=== PATIENT | female | born 1980 | race Caucasian/White ===

== ENCOUNTER 2021-02-13 13:20 | Emergency (ER) | payer BC, SELFPAY ==
[2021-02-13] MEDS ORDERED: Acetaminophen 500 MG TAB ONE (14:53)
== END 2021-02-13 14:58 | disposition home or self-care (01) ==
LOC: MADERS 13:20
DX: S93.402A Sprain of unspecified ligament of left ankle, initial encounter (principal); I25.10 Atherosclerotic heart disease of native coronary artery without angina pectoris; E11.9 Type 2 diabetes mellitus without complications; E78.5 Hyperlipidemia, unspecified; Z79.4 Long term (current) use of insulin; E78.00 Pure hypercholesterolemia, unspecified; I10 Essential (primary) hypertension; Z79.899 Other long term (current) drug therapy; Z79.82 Long term (current) use of aspirin; W17.2XXA Fall into hole, initial encounter

== ENCOUNTER 2021-10-14 08:24 | Emergency (ER) | payer MEDICAID, SELFPAY ==
[2021-10-14] MEDS ORDERED: Sodium Chloride 0.9% 100 ML BAG IVPB ONE (08:25)
[2021-10-14] MEDS ORDERED: Iopamidol 370 76% 125 ML VIAL FS ONE (08:25)
[2021-10-14 09:15] LABS: #Basophils 0.2 thou/uL (0.0-0.2); #Eosinphils 0.1 thou/uL (0.0-0.7); #Lymphocytes 0.7 thou/uL (1.20-3.40); #Monocytes 0.9 thou/uL (0.11-0.59); #Neutrophils 8.9 thou/uL (1.40-6.50); %Basophils 1.9 % (0.0-1.0); %Eosinophils 0.7 % (0.0-10.0); %Lymphocytes 6.9 % (21.0-51.0); %Monocytes 8.1 % (0.0-10.0); %Neutrophils 82.5 % (42.0-75.0); Hemoglobin 10.3 g/dL (12.0-16.0); Mean Corpuscular HGB CONC 29.7 g/dL (32.0-36.0); Mean Corpuscular Hemoglobin 24.9 pg (27.0-31.0); Mean Corpuscular Volume 83.9 fL (78.0-98.0); Mean Platelet Volume 6.9 fL (7.4-10.4); Platelet Count 268 thou/uL (130-400); Red Blood Cell (RBC) Count 4.14 mill/uL (4.20-5.40); White Blood Cell (WBC) Count 10.8 thou/uL (4.8-10.8)
[2021-10-14 09:18] LABS: Platelet Morphology Comment Appears Adequate
[2021-10-14] MEDS ORDERED: Ketorolac Tromethamine 30 MG/ML VIAL ONE (09:23)
[2021-10-14 09:31] LABS: ALT (SGPT) 16 U/L (8-55); AST (SGOT) 10 U/L (5-34); Albumin 3.4 g/dL (3.5-5.0); Alkaline Phosphatase 73 U/L (40-110); Anion Gap 15 mmol/L (10-20); BUN (Urea Nitrogen) 18 mg/dL (7.0-18.7); Bilirubin, Total 0.8 mg/dL (0.2-1.2); Calc. Creatinine Clearance 0 mL/min (70-130); Calcium 8.9 mg/dL (7.8-10.44); Carbon Dioxide 20 mmol/L (22-29); Chloride 103 mmol/L (98-107); Globulin 3.9 g/dL (2.4-3.5); Glucose 238 mg/dL (70-105); Lipase 30 U/L (8-78); Potassium 3.8 mmol/L (3.5-5.1); Protein, Total 7.3 g/dL (6.0-8.3); Sodium 134 mmol/L (136-145)
[2021-10-14 11:30] LABS: SARS-CoV-2 NAA Rapid Test DETECTED (NotDetected)
[2021-10-14] MEDS ORDERED: HYDROcodone/Acetaminophen 5/325 mg Tablet ONE (11:46)
== END 2021-10-14 11:55 | disposition home or self-care (01) ==
LOC: MADERS 08:24
DX: U07.1 COVID-19 (principal); I10 Essential (primary) hypertension; I25.10 Atherosclerotic heart disease of native coronary artery without angina pectoris; E11.9 Type 2 diabetes mellitus without complications; E78.5 Hyperlipidemia, unspecified; E78.00 Pure hypercholesterolemia, unspecified
CPT/HCPCS: 0240U; 71275; 80053; 83690; 83880; 84484; 85025; 93005; 96374; J1885; J3490; Q9967

== ENCOUNTER 2021-11-22 23:15 | Emergency (ER) | payer MEDICAID ==
[~2021-11-22 23:15] MED LIST: Iopamidol 370 76% 100 ML VIAL ONE
[2021-11-23] MEDS ORDERED: Ondansetron PF 4 MG/2 ML Vial ONE ×2 (00:59→04:22)
[2021-11-23] MEDS ORDERED: Ketorolac Tromethamine 30 MG/ML VIAL ONE (00:59)
[2021-11-23] MEDS ORDERED: Sodium Chloride 0.9% 1,000 ML ONE ×2 (00:59→03:04)
[2021-11-23 02:00] LABS: ALT (SGPT) 8 U/L (8-55); AST (SGOT) 21 U/L (5-34); Albumin 3.7 g/dL (3.5-5.0); Alkaline Phosphatase 80 U/L (40-110); Anion Gap 17 mmol/L (10-20); BUN (Urea Nitrogen) 16 mg/dL (7.0-18.7); Bilirubin, Total 0.9 mg/dL (0.2-1.2); Calc. Creatinine Clearance 0 mL/min (70-130); Calcium 9.2 mg/dL (7.8-10.44); Chloride 102 mmol/L (98-107); Globulin 3.7 g/dL (2.4-3.5); Glucose 278 mg/dL (70-105); Potassium 4.1 mmol/L (3.5-5.1); Protein, Total 7.4 g/dL (6.0-8.3); Sodium 140 mmol/L (136-145)
[2021-11-23 02:06] LABS: Carbon Dioxide 25 mmol/L (22-29)
[2021-11-23 02:11] LABS: #Basophils 0.1 thou/uL (0.0-0.2); #Eosinphils 0.3 thou/uL (0.0-0.7); #Lymphocytes 2.5 thou/uL (1.20-3.40); #Monocytes 0.6 thou/uL (0.11-0.59); %Basophils 0.9 % (0.0-1.0); %Eosinophils 2.2 % (0.0-10.0); %Monocytes 4.5 % (0.0-10.0); %Neutrophils 72.4 % (42.0-75.0); Hemoglobin 12.1 g/dL (12.0-16.0); Hypochromia SLIGHT = 6-15 cells (100X) (0-5/hpf); MDiff Complete? YES; Mean Corpuscular HGB CONC 29.7 g/dL (32.0-36.0); Mean Corpuscular Hemoglobin 23.9 pg (27.0-31.0); Mean Corpuscular Volume 80.6 fL (78.0-98.0); Mean Platelet Volume 6.6 fL (7.4-10.4); Microcytosis SLIGHT = 6-15 cells (100X) (0-5/hpf); Platelet Count 380 thou/uL (130-400); Polychromasia SLIGHT = 2-3 cells (100X) (0-2/hpf); Red Blood Cell (RBC) Count 5.05 mill/uL (4.20-5.40); White Blood Cell (WBC) Count 12.4 thou/uL (4.8-10.8)
[2021-11-23 02:42] LABS: Bilirubin Small (Negative); Blood, Urine Large (Negative); Clarity Cloudy (Clear); Glucose, Urine (Dipstick) Negative (Negative); Ketone, Urine Trace mg/dL (Negative); Leukocyte Negative (Negative); Nitrite Negative (Negative); Protein, Urine (Dipstick) > or equal to 300 mg/dL (Neg-Trace); pH, Urine 5.5 (5.0-9.0)
[2021-11-23 02:43] LABS: Specific Gravity, Urine 1.026 (1.002-1.036)
[2021-11-23 03:04] LABS: Bacteria/HPF Rare-Few HPF (None Seen); RBC/HPF Greater than 50 HPF (0-3); Transitional Epithelial 0-3 HPF (None Seen)
[2021-11-23] MEDS ORDERED: traMADol HCl 50 MG TAB ONE (03:04)
[2021-11-23] MEDS ORDERED: Promethazine HCl 25 MG/ML VIAL ONE (03:04)
[2021-11-23 03:07] LABS: Amphetamine Not Detected (NotDetected); Barbiturates Screen Not Detected (NotDetected); Benzodiazepine Screen Not Detected (NotDetected); Cocaine Metabolite Screen Not Detected (NotDetected); Medtox Control Line Valid? VALID (VALID); Methadone Not Detected (NotDetected); Methamphetamine Not Detected (NotDetected); Opiate Screen Not Detected (NotDetected); Oxycodone Screen Not Detected (NotDetected); Phencyclidine (PCP) Not Detected (NotDetected); THC/Cannabinoid Screen Detected (NotDetected); Tricyclic Screen Not Detected (NotDetected)
[2021-11-23] MEDS ORDERED: Lorazepam 2 MG/ML VIAL ONE (04:22)
== END 2021-11-23 07:09 | disposition home or self-care (01) ==
LOC: MADERS 23:15
DX: S39.012A Strain of muscle, fascia and tendon of lower back, initial encounter (principal); R16.0 Hepatomegaly, not elsewhere classified; I10 Essential (primary) hypertension; R00.0 Tachycardia, unspecified; I25.10 Atherosclerotic heart disease of native coronary artery without angina pectoris; E78.5 Hyperlipidemia, unspecified; Z79.899 Other long term (current) drug therapy; Z79.82 Long term (current) use of aspirin; Z79.4 Long term (current) use of insulin; X58.XXXA Exposure to other specified factors, initial encounter
CPT/HCPCS: 74177; 80053; 80306; 81003; 81015; 84443; 84484; 85025; 93005; 96374; 96375; 96376; J1885; J2060; J2405; J2550; J7050; Q9967

== ENCOUNTER 2022-05-01 15:07 | Emergency (ER) | payer MEDICAID ==
[2022-05-01] MEDS ORDERED: Ondansetron PF 4 MG/2 ML Vial ONE (17:46)
[2022-05-01] MEDS ORDERED: Morphine 4 MG/ML VIAL ONE ×2 (17:46→18:33)
== END 2022-05-01 18:40 | disposition short-term general hospital (02) ==
LOC: MADERS 15:07
DX: M54.16 Radiculopathy, lumbar region (principal); R20.1 Hypoesthesia of skin; E11.9 Type 2 diabetes mellitus without complications; R79.82 Elevated C-reactive protein (CRP); I10 Essential (primary) hypertension; I25.10 Atherosclerotic heart disease of native coronary artery without angina pectoris; E78.5 Hyperlipidemia, unspecified; E78.00 Pure hypercholesterolemia, unspecified; Z79.4 Long term (current) use of insulin; Z79.899 Other long term (current) drug therapy
CPT/HCPCS: 36415; 86140; 96374; 96375; 96376; J2270; J2405

== ENCOUNTER 2022-06-24 15:50 | Emergency (ER) | payer MEDICAID ==
[~2022-06-24 15:50] MED LIST changes: -Iopamidol 370 76% 100 ML VIAL ONE; +Iopamidol 370 76% 125 ML VIAL FS ONE
[2022-06-24] MEDS ORDERED: Sodium Chloride 0.9% 1,000 ML ONE (16:49)
[2022-06-24 17:39] LABS: ALT (SGPT) 17 U/L (8-55); AST (SGOT) 13 U/L (5-34); Albumin 3.7 g/dL (3.5-5.0); Alkaline Phosphatase 80 U/L (40-110); Anion Gap 14 mmol/L (10-20); BUN (Urea Nitrogen) 13 mg/dL (7.0-18.7); Bilirubin, Total 0.8 mg/dL (0.2-1.2); Calc. Creatinine Clearance 0 mL/min (70-130); Calcium 8.9 mg/dL (7.8-10.44); Carbon Dioxide 21 mmol/L (22-29); Chloride 107 mmol/L (98-107); Globulin 3.7 g/dL (2.4-3.5); Glucose 241 mg/dL (70-105); Potassium 3.6 mmol/L (3.5-5.1); Protein, Total 7.4 g/dL (6.0-8.3); Sodium 138 mmol/L (136-145)
[2022-06-24 17:43] LABS: Band 3 % (5-11); Eosinophils 8 % (0-10); Hemoglobin 13.8 g/dL (12.0-16.0); Lymphocytes 9 % (21-51); MDiff Complete? YES; Mean Corpuscular HGB CONC 30.8 g/dL (32.0-36.0); Mean Corpuscular Hemoglobin 28.6 pg (27.0-31.0); Mean Platelet Volume 9.5 fL (7.4-10.4); Monocytes 4 % (0-10); Neutrophil 68 % (42-75); Platelet Count 283 thou/uL (130-400); Platelet Morphology Comment Appears Adequate; RBC Distribution Width 14.9 % (11.5-14.5); RBC Morphology Normal; Reactive Lymphocytes 8 % (0-10); Red Blood Cell (RBC) Count 4.83 mill/uL (4.20-5.40); White Blood Cell (WBC) Count 12.8 thou/uL (4.8-10.8)
[2022-06-24 17:47] LABS: Estimated GFR 83
[2022-06-24 18:01] LABS: Bilirubin Negative (Negative); Blood, Urine Large (Negative); Glucose, Urine (Dipstick) 250 mg/dL (Negative); Ketone, Urine Negative (Negative); Leukocyte Negative (Negative); Nitrite Positive (Negative); Protein, Urine (Dipstick) 100 mg/dL (Neg-Trace); Urobilinogen 0.2 mg/dL (Less than 2)
[2022-06-24 18:02] LABS: Clarity Cloudy (Clear)
[2022-06-24 18:06] LABS: Pregnancy Test - Urine (BHCG) Negative (Negative); Pregu Control Background? CLEAR/WHITE (CLR/WHITE); Pregu Control Bar Appear? YES (CONTROL BAR)
[2022-06-24 18:11] LABS: Bacteria/HPF 2+ HPF (None Seen); RBC/HPF 0-3 HPF (0-3)
[2022-06-24] MEDS ORDERED: Ketorolac Tromethamine 30 MG/ML VIAL ONE (18:11)
[2022-06-24] MEDS ORDERED: Sulfameth/Trimethoprim DS 800-160mg TAB ONE (18:56)
[2022-06-24] MEDS ORDERED: traMADol HCl 50 MG TAB ONE (19:14)
== END 2022-06-24 19:31 | disposition home or self-care (01) ==
LOC: MADERS 15:50
DX: S76.011A Strain of muscle, fascia and tendon of right hip, initial encounter (principal); N30.01 Acute cystitis with hematuria; R42 Dizziness and giddiness; E11.9 Type 2 diabetes mellitus without complications; E78.00 Pure hypercholesterolemia, unspecified; I10 Essential (primary) hypertension; Z86.73 Personal history of transient ischemic attack (TIA), and cerebral infarction without residual deficits; Z79.4 Long term (current) use of insulin; Z79.899 Other long term (current) drug therapy; Z79.84 Long term (current) use of oral hypoglycemic drugs; W19.XXXA Unspecified fall, initial encounter
CPT/HCPCS: 36416; 71275; 80053; 81003; 81015; 81025; 84484; 85025; 85379; 93005; 96361; 96374; J1885; J7050; Q9967

== ENCOUNTER 2022-07-11 10:40 | Emergency (ER) | payer MEDICAID ==
[2022-07-11 11:41] LABS: #Basophils 0.1 thou/uL (0.0-0.2); #Eosinphils 0.7 thou/uL (0.0-0.7); #Lymphocytes 1.9 thou/uL (1.20-3.40); #Monocytes 0.5 thou/uL (0.11-0.59); #Neutrophils 7.5 thou/uL (1.40-6.50); %Basophils 1.2 % (0.0-1.0); %Eosinophils 6.2 % (0.0-10.0); %Lymphocytes 17.9 % (21.0-51.0); %Monocytes 4.8 % (0.0-10.0); Hemoglobin 15.3 g/dL (12.0-16.0); Mean Corpuscular HGB CONC 31.1 g/dL (32.0-36.0); Mean Corpuscular Hemoglobin 29.7 pg (27.0-31.0); Mean Corpuscular Volume 95.6 fL (78.0-98.0); Mean Platelet Volume 8.5 fL (7.4-10.4); Platelet Count 342 thou/uL (130-400); RBC Distribution Width 15.1 % (11.5-14.5); Red Blood Cell (RBC) Count 5.16 mill/uL (4.20-5.40); White Blood Cell (WBC) Count 10.8 thou/uL (4.8-10.8)
[2022-07-11 11:46] LABS: Bilirubin Negative (Negative); Blood, Urine Negative (Negative); Clarity Clear (Clear); Glucose, Urine (Dipstick) 100 mg/dL (Negative); Ketone, Urine Negative (Negative); Leukocyte Negative (Negative); Nitrite Negative (Negative); Protein, Urine (Dipstick) 30 mg/dL (Neg-Trace); Urobilinogen 0.2 mg/dL (Less than 2); pH, Urine 5.5 (5.0-9.0)
[2022-07-11 11:48] LABS: Pregnancy Test - Urine (BHCG) Negative (Negative); Pregu Control Background? CLEAR/WHITE (CLR/WHITE); Pregu Control Bar Appear? YES (CONTROL BAR)
[2022-07-11 11:53] LABS: Bacteria/HPF Rare-Few HPF (None Seen); Mucous/LPF Rare LPF (<2+); RBC/HPF 0-3 HPF (0-3); Squamous Epithelial 0-3 HPF (0-3); WBC/HPF 0-3 HPF (0-3)
[2022-07-11 11:56] LABS: ALT (SGPT) 16 U/L (8-55); AST (SGOT) 16 U/L (5-34); Albumin 3.9 g/dL (3.5-5.0); Alkaline Phosphatase 92 U/L (40-110); Anion Gap 17 mmol/L (10-20); BUN (Urea Nitrogen) 10 mg/dL (7.0-18.7); Bilirubin, Total 0.7 mg/dL (0.2-1.2); Calc. Creatinine Clearance 0 mL/min (70-130); Calcium 9.1 mg/dL (7.8-10.44); Carbon Dioxide 21 mmol/L (22-29); Chloride 101 mmol/L (98-107); Estimated GFR 96; Globulin 4.1 g/dL (2.4-3.5); Glucose 298 mg/dL (70-105); Potassium 4.2 mmol/L (3.5-5.1); Sodium 135 mmol/L (136-145)
[2022-07-11] MEDS ORDERED: Furosemide 40 MG/4 ML VIAL ONE (12:34)
[2022-07-11] MEDS ORDERED: Ketorolac Tromethamine 30 MG/ML VIAL ONE (13:25)
== END 2022-07-11 16:09 | disposition short-term general hospital (02) ==
LOC: MADERS 10:40
DX: I11.0 Hypertensive heart disease with heart failure (principal); I50.9 Heart failure, unspecified; J90 Pleural effusion, not elsewhere classified; E11.9 Type 2 diabetes mellitus without complications; E78.00 Pure hypercholesterolemia, unspecified; E66.9 Obesity, unspecified; Z86.73 Personal history of transient ischemic attack (TIA), and cerebral infarction without residual deficits; Z79.4 Long term (current) use of insulin; Z79.899 Other long term (current) drug therapy
CPT/HCPCS: 71045; 80053; 81003; 81015; 81025; 83880; 84484; 85025; 87086; 93005; 96374; 96375; J1885; J1940

== ENCOUNTER 2022-08-29 08:37 | Emergency (ER) | payer MEDICAID ==
[~2022-08-29 08:37] MED LIST changes: -Iopamidol 370 76% 125 ML VIAL FS ONE; +Sodium Chloride 0.9% 100 ML BAG ONE
[2022-08-29] MEDS ORDERED: Iopamidol 370 76% 125 ML VIAL FS ONE (08:52)
[2022-08-29] MEDS ORDERED: Ondansetron PF 4 MG/2 ML Vial ONE (09:17)
[2022-08-29] MEDS ORDERED: Metoprolol Tartrate 5 MG/5 ML VIAL ONE (09:17)
[2022-08-29] MEDS ORDERED: Aspirin 325 MG TAB ONE (09:17)
[2022-08-29 09:34] LABS: INR-International Normal Ratio 1.3; Prothrombin Time 16.8 sec (12.0-14.7)
[2022-08-29 09:35] LABS: PTT 25.7 sec (22.9-36.1)
[2022-08-29 09:38] LABS: Band 3 % (5-11); Hemoglobin 15.2 g/dL (12.0-16.0); Lymphocytes 4 % (21-51); MDiff Complete? YES; Mean Corpuscular HGB CONC 30.2 g/dL (32.0-36.0); Mean Corpuscular Volume 96.2 fl (78.0-98.0); Mean Platelet Volume 7.6 fL (7.4-10.4); Monocytes 2 % (0-10); Myelocyte 1 % (0-0); Neutrophil 90 % (42-75); Platelet Count 327 10x3/uL (130-400); Platelet Morphology Comment Appears Adequate; RBC Distribution Width 15.7 % (11.5-14.5); RBC Morphology Normal; Red Blood Cell (RBC) Count 5.23 mill/uL (4.20-5.40); White Blood Cell (WBC) Count 21.3 10x3/uL (4.8-10.8)
[2022-08-29] MEDS ORDERED: Furosemide 40 MG/4 ML VIAL ONE (09:39)
[2022-08-29 09:42] LABS: ALT (SGPT) 18 U/L (8-55); AST (SGOT) 14 U/L (5-34); Albumin 4.1 g/dL (3.5-5.0); Alkaline Phosphatase 107 U/L (40-110); Anion Gap 28 mmol/L (10-20); BUN (Urea Nitrogen) 15 mg/dL (7.0-18.7); Bilirubin, Total 1.8 mg/dL (0.2-1.2); CK (CPK) 48 U/L (29-168); Calc. Creatinine Clearance 0 mL/min (70-130); Calcium 9.4 mg/dL (7.8-10.44); Carbon Dioxide 14 mmol/L (22-29); Chloride 99 mmol/L (98-107); Estimated GFR 62; Globulin 4.8 g/dL (2.4-3.5); Lipase 26 U/L (8-78); Magnesium 1.7 mg/dL (1.6-2.6); Potassium 4.1 mmol/L (3.5-5.1); Protein, Total 8.9 g/dL (6.0-8.3); Sodium 137 mmol/L (136-145)
[2022-08-29 10:06] LABS: Glucose 535 mg/dL (70-105)
[2022-08-29] MEDS ORDERED: INSULIN REGULAR IN 0.9 % NACL 100 UNIT/100 ML BAG ONE (10:47)
[2022-08-29] MEDS ORDERED: Potassium Chloride 20 MEQ TAB ONE (10:47)
[2022-08-29 11:06] LABS: Bilirubin Negative (Negative); Blood, Urine Moderate (Negative); Glucose, Urine (Dipstick) >=1000 mg/dL (Negative); Ketone, Urine 40 mg/dL (Negative); Leukocyte Negative (Negative); Nitrite Negative (Negative); Protein, Urine (Dipstick) > or equal to 300 mg/dL (Neg-Trace); Urobilinogen 0.2 mg/dL (Less than 2)
[2022-08-29 11:11] LABS: Bacteria/HPF 1+ HPF (None Seen); Clarity Hazy (Clear); WBC/HPF 0-3 HPF (0-3)
[2022-08-29 11:11] LABS: Pregnancy Test - Urine (BHCG) Negative (Negative); Pregu Control Background? CLEAR/WHITE (CLR/WHITE); Pregu Control Bar Appear? YES (CONTROL BAR)
[2022-08-29 11:22] LABS: Base Excess-Venous -10.1 mmol/L (-2.0 to 3.0); Bicarbonate (HCO3v) 16.1 mmol/L (22.0-28.0); CO2 Tension (PvCO2) 36.4 mmHg (42.0-51.0); Calcium, Ionized 0.99 mmol/L (1.15-1.33); Chloride 104 mmol/L (98-107); Hemoglobin - Calc 17.3 g/dL (12.0-16.0); Potassium 5.9 mmol/L (3.5-5.1); Sodium 135 mmol/L (138-145); T. Carbon Dioxide 17.3 mmol/L (22.0-28.0); vO2 Saturation-calc 82.9 % (60.0-85.0)
[2022-08-29] MEDS ORDERED: Sodium Chloride 0.9% 100 ML ONE (12:15)
[2022-08-29 12:55] LABS: SARS-CoV-2 NAA Rapid Test Not Detected (NotDetected)
== END 2022-08-29 12:47 | disposition short-term general hospital (02) ==
LOC: MADERS 08:37
DX: E11.10 Type 2 diabetes mellitus with ketoacidosis without coma (principal); J18.0 Bronchopneumonia, unspecified organism; I11.0 Hypertensive heart disease with heart failure; I50.9 Heart failure, unspecified; R55 Syncope and collapse; E78.00 Pure hypercholesterolemia, unspecified; Z79.4 Long term (current) use of insulin; Z87.891 Personal history of nicotine dependence; Z20.822 Contact with and (suspected) exposure to COVID-19; Z79.899 Other long term (current) drug therapy
CPT/HCPCS: 36415; 36416; 70450; 71045; 71275; 74177; 80053; 81003; 81015; 81025; 82010; 82330; 82550; 82553; 82803; 83605; 83690; 83735; 83880; 84484; 85025; 85379; 85610; 85730; 87040; 93005; 96365; 96367; 96375; J1815; J1940; J2405; J3490; J7620; Q9967; U0002

== ENCOUNTER 2022-09-15 18:18 | Emergency (ER) | payer MEDICAID ==
[~2022-09-15 18:18] MED LIST changes: +Iopamidol 370 76% 125 ML VIAL FS ONE; -Sodium Chloride 0.9% 100 ML BAG ONE
[2022-09-15] MEDS ORDERED: Sodium Chloride 0.9% 500 ML ONE ×2 (18:39→19:52)
[2022-09-15] MEDS ORDERED: Orphenadrine Citrate 60 MG/2 ML VIAL ONE (18:39)
[2022-09-15 19:08] LABS: #Basophils 0.1 thou/uL (0.0-0.2); #Eosinphils 0.3 thou/uL (0.0-0.7); #Lymphocytes 2.6 thou/uL (1.20-3.40); #Monocytes 0.5 thou/uL (0.11-0.59); %Basophils 1.4 % (0.0-1.0); %Eosinophils 3.2 % (0.0-10.0); %Lymphocytes 26.9 % (21.0-51.0); %Monocytes 5.6 % (0.0-10.0); %Neutrophils 62.9 % (42.0-75.0); Hemoglobin 12.6 g/dL (12.0-16.0); Mean Corpuscular Hemoglobin 27.9 pg (27.0-31.0); Mean Platelet Volume 8.2 fL (7.4-10.4); Platelet Count 298 10x3/uL (130-400); RBC Distribution Width 16.3 % (11.5-14.5); Red Blood Cell (RBC) Count 4.53 mill/uL (4.20-5.40); White Blood Cell (WBC) Count 9.5 10x3/uL (4.8-10.8)
[2022-09-15 19:11] LABS: BHCG - Serum Negative (NEGATIVE); Pregs Control Background? CLEAR/WHITE (CLR/WHITE); Pregs Control Bar Appear? YES (CONTROL BAR)
[2022-09-15 19:22] LABS: ALT (SGPT) 13 U/L (8-55); AST (SGOT) 12 U/L (5-34); Albumin 3.3 g/dL (3.5-5.0); Alkaline Phosphatase 95 U/L (40-110); Anion Gap 17 mmol/L (10-20); BUN (Urea Nitrogen) 17 mg/dL (7.0-18.7); Bilirubin, Total 0.8 mg/dL (0.2-1.2); Calc. Creatinine Clearance 0 mL/min (70-130); Calcium 8.7 mg/dL (7.8-10.44); Carbon Dioxide 17 mmol/L (22-29); Chloride 109 mmol/L (98-107); Estimated GFR 82; Globulin 3.5 g/dL (2.4-3.5); Glucose 236 mg/dL (70-105); Magnesium 1.7 mg/dL (1.6-2.6); Potassium 3.6 mmol/L (3.5-5.1); Protein, Total 6.8 g/dL (6.0-8.3); Sodium 139 mmol/L (136-145)
[2022-09-15] MEDS ORDERED: Vancomycin 1 GM VIAL ONE (19:54)
[2022-09-15] MEDS ORDERED: Sodium Chloride 0.9% 250 ML 250 ML ONE (19:54)
[2022-09-15 21:29] LABS: Bilirubin Small (Negative); Blood, Urine Small (Negative); Glucose, Urine (Dipstick) 500 mg/dL (Negative); Ketone, Urine Negative (Negative); Leukocyte Negative (Negative); Nitrite Negative (Negative); Protein, Urine (Dipstick) > or equal to 300 mg/dL (Neg-Trace); Urobilinogen 0.2 mg/dL (Less than 2); pH, Urine 5.5 (5.0-9.0)
[2022-09-15 21:30] LABS: Clarity Hazy (Clear)
[2022-09-15 21:32] LABS: Specific Gravity, Urine 1.038 (1.002-1.036)
[2022-09-15 21:33] LABS: Acetaminophen Less than 10.0 mcg/mL (10.0-30.0); Alcohol Less than 10 mg/dL (Less than 10); Salicylate Less than 8.0 mg/dL (15.0-30.0)
[2022-09-15 21:36] LABS: RBC/HPF 0-3 HPF (0-3); Transitional Epithelial 0-3 HPF (None Seen)
[2022-09-15 21:37] LABS: Bacteria/HPF Rare-Few HPF (None Seen); Mucous/LPF 1+ LPF (<2+)
[2022-09-15 21:38] LABS: Amphetamine Not Detected (NotDetected); Barbiturates Screen Not Detected (NotDetected); Benzodiazepine Screen Not Detected (NotDetected); Cocaine Metabolite Screen Not Detected (NotDetected); Medtox Control Line Valid? VALID (VALID); Methadone Not Detected (NotDetected); Methamphetamine Not Detected (NotDetected); Opiate Screen Not Detected (NotDetected); Oxycodone Screen Not Detected (NotDetected); Phencyclidine (PCP) Not Detected (NotDetected); THC/Cannabinoid Screen Detected (NotDetected); Tricyclic Screen Not Detected (NotDetected)
[2022-09-15] MEDS ORDERED: Dexamethasone 10 MG/ML VIAL ONE (22:21)
[2022-09-15] MEDS ORDERED: HYDROcodone/Acetaminophen 5/325 mg Tablet ONE (22:22)
[2022-09-16] MEDS ORDERED: Carvedilol 6.25 MG TAB ONE (09:18)
[2022-09-16] MEDS ORDERED: Spironolactone 25 MG TAB PO SCH ×2 (09:45→10:15)
[2022-09-16] MEDS ORDERED: Vancomycin 1 GM VIAL ONE (09:59)
[2022-09-16] MEDS ORDERED: Sodium Chloride 0.9% 500 ML ONE (10:00)
== END 2022-09-16 12:18 | disposition home or self-care (01) ==
LOC: MADERS 18:18
DX: M51.36 Other intervertebral disc degeneration, lumbar region (principal); L03.90 Cellulitis, unspecified; R00.0 Tachycardia, unspecified; E78.00 Pure hypercholesterolemia, unspecified; I11.0 Hypertensive heart disease with heart failure; I50.9 Heart failure, unspecified; E11.9 Type 2 diabetes mellitus without complications; Z79.4 Long term (current) use of insulin; Z79.82 Long term (current) use of aspirin; Z79.899 Other long term (current) drug therapy; Z87.891 Personal history of nicotine dependence
CPT/HCPCS: 36416; 71045; 71275; 72131; 80053; 80306; 80307; 81003; 81015; 83605; 83735; 83880; 84484; 84703; 85025; 87040; 93005; 96365; 96366; 96372; J1100; J2360; J3370; J7030; J7050; Q9967

== ENCOUNTER 2022-09-19 15:49 | Emergency (ER) | payer MEDICAID ==
[2022-09-19 16:37] LABS: #Basophils 0.1 thou/uL (0.0-0.2); #Eosinphils 0.1 thou/uL (0.0-0.7); #Lymphocytes 1.6 thou/uL (1.20-3.40); #Monocytes 0.6 thou/uL (0.11-0.59); #Neutrophils 4.4 thou/uL (1.40-6.50); %Basophils 1.5 % (0.0-1.0); %Eosinophils 1.8 % (0.0-10.0); %Lymphocytes 23.8 % (21.0-51.0); %Monocytes 8.4 % (0.0-10.0); %Neutrophils 64.4 % (42.0-75.0); Hemoglobin 12.1 g/dL (12.0-16.0); Mean Corpuscular Hemoglobin 27.7 pg (27.0-31.0); Mean Corpuscular Volume 89.3 fl (78.0-98.0); Platelet Count 322 10x3/uL (130-400); RBC Distribution Width 16.5 % (11.5-14.5); Red Blood Cell (RBC) Count 4.36 mill/uL (4.20-5.40); White Blood Cell (WBC) Count 6.9 10x3/uL (4.8-10.8)
[2022-09-19] MEDS ORDERED: Ondansetron PF 4 MG/2 ML Vial ONE (17:08)
[2022-09-19] MEDS ORDERED: Orphenadrine Citrate 60 MG/2 ML VIAL ONE (17:08)
[2022-09-19] MEDS ORDERED: Sodium Chloride 0.9% 1,000 ML ONE (17:08)
[2022-09-19] MEDS ORDERED: Ketorolac Tromethamine 30 MG/ML VIAL ONE (17:08)
[2022-09-19 17:10] LABS: ALT (SGPT) 11 U/L (8-55); AST (SGOT) 11 U/L (5-34); Albumin 3.4 g/dL (3.5-5.0); Alkaline Phosphatase 86 U/L (40-110); Anion Gap 14 mmol/L (10-20); BUN (Urea Nitrogen) 10 mg/dL (7.0-18.7); Bilirubin, Total 0.9 mg/dL (0.2-1.2); Calc. Creatinine Clearance 0 mL/min (70-130); Calcium 8.6 mg/dL (7.8-10.44); Carbon Dioxide 22 mmol/L (22-29); Chloride 104 mmol/L (98-107); Estimated GFR 92; Globulin 3.3 g/dL (2.4-3.5); Glucose 350 mg/dL (70-105); Potassium 3.9 mmol/L (3.5-5.1); Protein, Total 6.7 g/dL (6.0-8.3); Sodium 136 mmol/L (136-145)
[2022-09-19 18:00] LABS: Magnesium 1.7 mg/dL (1.6-2.6)
[2022-09-19] MEDS ORDERED: Furosemide 40 MG/4 ML VIAL ONE (18:01)
[2022-09-19] MEDS ORDERED: Vancomycin 1 GM VIAL ONE (18:26)
[2022-09-19] MEDS ORDERED: Cefepime 2 GM VIAL ONE (18:26)
[2022-09-19] MEDS ORDERED: Sodium Chloride 0.9% 100 ML ONE (18:26)
[2022-09-19] MEDS ORDERED: Sodium Chloride 0.9% 250 ML 250 ML ONE (18:26)
[2022-09-19 20:42] LABS: Lactic Acid 2.8 mmol/L (0.5-2.2)
[2022-09-19 20:51] LABS: Bilirubin Negative (Negative); Blood, Urine Small (Negative); Glucose, Urine (Dipstick) 500 mg/dL (Negative); Ketone, Urine Negative (Negative); Leukocyte Negative (Negative); Nitrite Negative (Negative); Protein, Urine (Dipstick) 100 mg/dL (Neg-Trace); Urobilinogen 0.2 mg/dL (Less than 2); pH, Urine 5.5 (5.0-9.0)
[2022-09-19 20:56] LABS: Clarity Hazy (Clear); RBC/HPF 0-3 HPF (0-3); Specific Gravity, Urine 1.024 (1.002-1.036); Yeast-Budding 2+ HPF (None Seen)
[2022-09-19] MEDS ORDERED: HYDROcodone/Acetaminophen 5/325 mg Tablet ONE (22:45)
== END 2022-09-19 23:42 | disposition short-term general hospital (02) ==
LOC: MADERS 15:49
DX: A41.9 Sepsis, unspecified organism (principal); E11.9 Type 2 diabetes mellitus without complications; I11.0 Hypertensive heart disease with heart failure; I50.9 Heart failure, unspecified; E78.5 Hyperlipidemia, unspecified; E78.00 Pure hypercholesterolemia, unspecified; Z79.4 Long term (current) use of insulin; Z87.891 Personal history of nicotine dependence; Z79.899 Other long term (current) drug therapy
CPT/HCPCS: 80053; 81003; 81015; 83605; 83735; 83880; 84484; 85025; 87040; 96365; 96366; 96367; 96375; J0692; J1885; J1940; J2360; J2405; J3370; J3490; J7050

== ENCOUNTER 2022-10-01 15:44 | Emergency (ER) | payer MEDICAID ==
[2022-10-01 16:09] LABS: #Basophils 0.1 thou/uL (0.0-0.2); #Lymphocytes 1.7 thou/uL (1.20-3.40); #Monocytes 1.3 thou/uL (0.11-0.59); #Neutrophils 7.1 thou/uL (1.40-6.50); %Basophils 1.5 % (0.0-1.0); %Eosinophils 0.3 % (0.0-10.0); %Lymphocytes 16.3 % (21.0-51.0); %Monocytes 12.8 % (0.0-10.0); %Neutrophils 69.1 % (42.0-75.0); Mean Corpuscular HGB CONC 30.2 g/dL (32.0-36.0); Mean Corpuscular Hemoglobin 26.1 pg (27.0-31.0); Mean Corpuscular Volume 86.5 fl (78.0-98.0); Mean Platelet Volume 8.7 fL (7.4-10.4); Platelet Count 250 10x3/uL (130-400); RBC Distribution Width 17.3 % (11.5-14.5); Red Blood Cell (RBC) Count 4.61 mill/uL (4.20-5.40); White Blood Cell (WBC) Count 10.3 10x3/uL (4.8-10.8)
[2022-10-01] MEDS ORDERED: Furosemide 40 MG/4 ML VIAL ONE (16:10)
[2022-10-01 16:21] LABS: ALT (SGPT) 10 U/L (8-55); AST (SGOT) 17 U/L (5-34); Albumin 3.5 g/dL (3.5-5.0); Alkaline Phosphatase 87 U/L (40-110); Anion Gap 20 mmol/L (10-20); BUN (Urea Nitrogen) 8 mg/dL (7.0-18.7); Bilirubin, Total 1.3 mg/dL (0.2-1.2); CK (CPK) 166 U/L (29-168); Calc. Creatinine Clearance 0 mL/min (70-130); Calcium 8.2 mg/dL (7.8-10.44); Carbon Dioxide 20 mmol/L (22-29); Chloride 103 mmol/L (98-107); Estimated GFR 84; Globulin 3.5 g/dL (2.4-3.5); Glucose 271 mg/dL (70-105); Potassium 2.8 mmol/L (3.5-5.1); Sodium 140 mmol/L (136-145)
[2022-10-01] MEDS ORDERED: Potassium Chloride 10 MEQ TAB ONE (16:41)
[2022-10-01] MEDS ORDERED: Potassium Chloride 20 MEQ TAB ONE (16:41)
== END 2022-10-01 19:32 | disposition short-term general hospital (02) ==
LOC: MADERS 15:44
DX: I50.9 Heart failure, unspecified (principal); E87.6 Hypokalemia; R09.02 Hypoxemia; E11.9 Type 2 diabetes mellitus without complications; E78.5 Hyperlipidemia, unspecified; Z87.891 Personal history of nicotine dependence; Z79.4 Long term (current) use of insulin; Z79.899 Other long term (current) drug therapy; Z79.82 Long term (current) use of aspirin
CPT/HCPCS: 71045; 80053; 82550; 83880; 84484; 85025; 93005; 94660; 96374; J1940

== ENCOUNTER 2022-10-24 15:23 | Emergency (ER) | payer MEDICAID ==
[2022-10-24 16:44] LABS: INR-International Normal Ratio 1.4; Prothrombin Time 17.6 sec (12.0-14.7)
[2022-10-24 16:45] LABS: PTT 30.2 sec (22.9-36.1)
[2022-10-24 16:53] LABS: ALT (SGPT) 20 U/L (8-55); AST (SGOT) 12 U/L (5-34); Albumin 2.8 g/dL (3.5-5.0); Alkaline Phosphatase 102 U/L (40-110); Anion Gap 18 mmol/L (10-20); BUN (Urea Nitrogen) 14 mg/dL (7.0-18.7); Bilirubin, Total 2.5 mg/dL (0.2-1.2); Calc. Creatinine Clearance 0 mL/min (70-130); Calcium 8.6 mg/dL (7.8-10.44); Carbon Dioxide 22 mmol/L (22-29); Chloride 96 mmol/L (98-107); Estimated GFR 85; Globulin 3.9 g/dL (2.4-3.5); Glucose 280 mg/dL (70-105); Magnesium 1.7 mg/dL (1.6-2.6); Potassium 3.7 mmol/L (3.5-5.1); Protein, Total 6.7 g/dL (6.0-8.3); Sodium 132 mmol/L (136-145)
[2022-10-24 16:54] LABS: #Basophils 0.1 thou/uL (0.0-0.2); #Lymphocytes 1.3 thou/uL (1.20-3.40); #Monocytes 0.7 thou/uL (0.11-0.59); #Neutrophils 7.4 thou/uL (1.40-6.50); %Eosinophils 0.5 % (0.0-10.0); %Lymphocytes 13.8 % (21.0-51.0); %Monocytes 7.7 % (0.0-10.0); %Neutrophils 77.1 % (42.0-75.0); Anisocytosis SLIGHT = 6-15 cells (100X) (0-5/hpf); Hemoglobin 11.2 g/dL (12.0-16.0); Hypochromia SLIGHT = 6-15 cells (100X) (0-5/hpf); MDiff Complete? YES; Mean Corpuscular Hemoglobin 25.6 pg (27.0-31.0); Mean Corpuscular Volume 82.6 fl (78.0-98.0); Mean Platelet Volume 8.2 fL (7.4-10.4); Platelet Count 259 10x3/uL (130-400); Platelet Morphology Comment Appears Adequate; RBC Distribution Width 19.1 % (11.5-14.5); Red Blood Cell (RBC) Count 4.36 mill/uL (4.20-5.40); White Blood Cell (WBC) Count 9.6 10x3/uL (4.8-10.8)
[2022-10-24] MEDS ORDERED: Furosemide 40 MG/4 ML VIAL ONE (17:12)
[2022-10-24] MEDS ORDERED: Metoprolol Tartrate 5 MG/5 ML VIAL ONE (17:12)
[2022-10-24 18:03] LABS: Bilirubin Large (Negative); Blood, Urine Trace (Negative); Glucose, Urine (Dipstick) 100 mg/dL (Negative); Ketone, Urine Trace mg/dL (Negative); Leukocyte Negative (Negative); Nitrite Negative (Negative); Protein, Urine (Dipstick) > or equal to 300 mg/dL (Neg-Trace); pH, Urine 5.5 (5.0-9.0)
[2022-10-24 18:10] LABS: Bacteria/HPF 1+ HPF (None Seen); Clarity Hazy (Clear); RBC/HPF 0-3 HPF (0-3); Squamous Epithelial 0-3 HPF (0-3); WBC/HPF 0-3 HPF (0-3)
[2022-10-24 18:36] LABS: SARS-CoV-2 NAA Rapid Test DETECTED (NotDetected)
[2022-10-24 19:35] LABS: Lactic Acid 3.4 mmol/L (0.5-2.2)
== END 2022-10-24 20:52 | disposition short-term general hospital (02) ==
LOC: MADERS 15:23
DX: U07.1 COVID-19 (principal); I11.0 Hypertensive heart disease with heart failure; I50.9 Heart failure, unspecified; L30.4 Erythema intertrigo; R79.89 Other specified abnormal findings of blood chemistry; E11.9 Type 2 diabetes mellitus without complications; E78.5 Hyperlipidemia, unspecified; Z87.891 Personal history of nicotine dependence; Z79.899 Other long term (current) drug therapy; Z79.82 Long term (current) use of aspirin; Z79.4 Long term (current) use of insulin
CPT/HCPCS: 36415; 51702; 71045; 80053; 81003; 81015; 82550; 83605; 83735; 83880; 84443; 84484; 85025; 85379; 85610; 85730; 87040; 87086; 87149; 93005; 94760; 96374; 96375; J1940

== ENCOUNTER 2023-01-05 19:27 | Inpatient (IN) | payer MEDICARE, MEDICAID ==
[2023-01-05] MEDS ORDERED: Non-Formulary Item 1 EACH (Acetaminophen [Tylenol] 325 MG Capsule) PO SCH (22:00)
[2023-01-05] MEDS ORDERED: Bisacodyl 5 MG TAB PO PRN (22:00)
[2023-01-05] MEDS ORDERED: Albuterol 200 PUFF (6.7GM INHALER) INH PRN (22:00)
[2023-01-05] MEDS ORDERED: Ondansetron ODT 4 MG TAB PO PRN (22:02)
[2023-01-05] MEDS ORDERED: Acetaminophen 325 MG TAB PO PRN (22:16)
[2023-01-05] MEDS ORDERED: Dextrose 50% Abboject 50 ML SYRINGE IVP PRN (23:30)
[2023-01-05] MEDS ORDERED: Dextrose 5% in Water 1,000 ML IV PRN (23:30)
[2023-01-06] MEDS: Morphine 4 MG/ML VIAL SLOW IVP PRN ×2 (00:34→12:18)
[2023-01-06] MEDS: HYDROcodone/Acetaminophen 7.5/325 mg Tablet PO PRN ×2 (08:44→20:36)
[2023-01-06] MEDS: Nystatin Cream 15 GM TUBE TOP SCH ×2 (08:45→20:42)
[2023-01-06] MEDS: Sertraline 100 MG TAB PO SCH (08:46)
[2023-01-06] MEDS: Saccharomyces boulardii 250 MG CAP PO SCH (08:46)
[2023-01-06] MEDS: Aspirin 81 mg Enteric Coated Tablet PO SCH (08:46)
[2023-01-06] MEDS: tiZANidine HCl 4 MG TAB PO SCH ×2 (08:46→20:36)
[2023-01-06] MEDS: Gabapentin 300 MG CAP PO SCH ×3 (08:46→20:35)
[2023-01-06] MEDS: Spironolactone 25 MG TAB PO SCH (08:46)
[2023-01-06] MEDS: Cefdinir 300 MG CAP PO SCH ×2 (08:46→20:36)
[2023-01-06] MEDS: Carvedilol 6.25 MG TAB PO SCH ×2 (08:46→16:38)
[2023-01-06] MEDS: Torsemide 20 MG TAB PO SCH (08:47)
[2023-01-06] MEDS ORDERED: Gabapentin 100 MG CAP PO SCH (09:00)
[2023-01-06] MEDS: HumaLOG 300 UNITS/3 ML VIAL SC PRN ×3 (12:11→20:38)
[2023-01-06] MEDS: Atorvastatin Calcium 40 MG TAB PO SCH (20:36)
[2023-01-06] MEDS: Lantus 1000 UNITS/10 ML VIAL SC SCH (20:37)
[2023-01-07] MEDS: Morphine 4 MG/ML VIAL SLOW IVP PRN ×2 (00:11→20:05)
[2023-01-07] MEDS: tiZANidine HCl 4 MG TAB PO SCH ×2 (08:18→20:34)
[2023-01-07] MEDS: Gabapentin 300 MG CAP PO SCH ×3 (08:18→20:34)
[2023-01-07] MEDS: Carvedilol 6.25 MG TAB PO SCH ×2 (08:18→17:21)
[2023-01-07] MEDS: Cefdinir 300 MG CAP PO SCH ×2 (08:18→20:34)
[2023-01-07] MEDS: Aspirin 81 mg Enteric Coated Tablet PO SCH (08:18)
[2023-01-07] MEDS: Torsemide 20 MG TAB PO SCH (08:18)
[2023-01-07] MEDS: Sertraline 100 MG TAB PO SCH (08:18)
[2023-01-07] MEDS: Saccharomyces boulardii 250 MG CAP PO SCH (08:19)
[2023-01-07] MEDS: Spironolactone 25 MG TAB PO SCH (08:19)
[2023-01-07] MEDS: Nystatin Cream 15 GM TUBE TOP SCH (08:20)
[2023-01-07] MEDS: HYDROcodone/Acetaminophen 7.5/325 mg Tablet PO PRN ×2 (08:21→15:31)
[2023-01-07] MEDS: HumaLOG 300 UNITS/3 ML VIAL SC PRN (11:51)
[2023-01-07] MEDS: Atorvastatin Calcium 40 MG TAB PO SCH (20:34)
[2023-01-07] MEDS: Lantus 1000 UNITS/10 ML VIAL SC SCH (22:24)
[2023-01-08] MEDS: Ascorbic Acid 500 mg Chewable Tablet PO SCH (08:25)
[2023-01-08] MEDS: Carvedilol 6.25 MG TAB PO SCH ×2 (08:25→17:28)
[2023-01-08] MEDS: Sertraline 100 MG TAB PO SCH (08:25)
[2023-01-08] MEDS: Cefdinir 300 MG CAP PO SCH ×2 (08:25→20:01)
[2023-01-08] MEDS: tiZANidine HCl 4 MG TAB PO SCH ×2 (08:25→20:02)
[2023-01-08] MEDS: Saccharomyces boulardii 250 MG CAP PO SCH (08:25)
[2023-01-08] MEDS: Aspirin 81 mg Enteric Coated Tablet PO SCH (08:25)
[2023-01-08] MEDS: Gabapentin 300 MG CAP PO SCH ×3 (08:25→20:02)
[2023-01-08] MEDS: Spironolactone 25 MG TAB PO SCH (08:26)
[2023-01-08] MEDS: Zinc Sulfate 220 MG CAP PO SCH (08:26)
[2023-01-08] MEDS: Torsemide 20 MG TAB PO SCH (08:26)
[2023-01-08] MEDS: HumaLOG 300 UNITS/3 ML VIAL SC PRN ×2 (08:51→11:20)
[2023-01-08] MEDS: Morphine 4 MG/ML VIAL SLOW IVP PRN ×2 (09:41→21:45)
[2023-01-08] MEDS: HYDROcodone/Acetaminophen 7.5/325 mg Tablet PO PRN ×2 (11:22→19:58)
[2023-01-08] MEDS: Atorvastatin Calcium 40 MG TAB PO SCH (20:02)
[2023-01-08] MEDS: Lantus 1000 UNITS/10 ML VIAL SC SCH (22:00)
[2023-01-09] MEDS: Torsemide 20 MG TAB PO SCH (08:32)
[2023-01-09] MEDS: Aspirin 81 mg Enteric Coated Tablet PO SCH (08:32)
[2023-01-09] MEDS: Ascorbic Acid 500 mg Chewable Tablet PO SCH (08:32)
[2023-01-09] MEDS: Saccharomyces boulardii 250 MG CAP PO SCH (08:32)
[2023-01-09] MEDS: Cefdinir 300 MG CAP PO SCH ×2 (08:32→20:17)
[2023-01-09] MEDS: Gabapentin 300 MG CAP PO SCH ×3 (08:32→20:17)
[2023-01-09] MEDS: tiZANidine HCl 4 MG TAB PO SCH ×2 (08:32→20:17)
[2023-01-09] MEDS: Zinc Sulfate 220 MG CAP PO SCH (08:32)
[2023-01-09] MEDS: Spironolactone 25 MG TAB PO SCH (08:32)
[2023-01-09] MEDS: Carvedilol 6.25 MG TAB PO SCH ×2 (08:33→16:43)
[2023-01-09] MEDS: Sertraline 100 MG TAB PO SCH (08:33)
[2023-01-09] MEDS: HYDROcodone/Acetaminophen 7.5/325 mg Tablet PO PRN ×3 (10:59→22:53)
[2023-01-09] MEDS: HumaLOG 300 UNITS/3 ML VIAL SC PRN (12:07)
[2023-01-09] MEDS: Morphine 4 MG/ML VIAL SLOW IVP PRN (12:49)
[2023-01-09] MEDS: Atorvastatin Calcium 40 MG TAB PO SCH (20:17)
[2023-01-09] MEDS: Lantus 1000 UNITS/10 ML VIAL SC SCH (20:18)
[2023-01-10] MEDS: Morphine 4 MG/ML VIAL SLOW IVP PRN ×2 (01:33→13:55)
[2023-01-10] MEDS: Carvedilol 6.25 MG TAB PO SCH ×2 (09:24→18:14)
[2023-01-10] MEDS: Ascorbic Acid 500 mg Chewable Tablet PO SCH (09:24)
[2023-01-10] MEDS: Torsemide 20 MG TAB PO SCH (09:24)
[2023-01-10] MEDS: Sertraline 100 MG TAB PO SCH (09:25)
[2023-01-10] MEDS: tiZANidine HCl 4 MG TAB PO SCH ×2 (09:25→21:22)
[2023-01-10] MEDS: Aspirin 81 mg Enteric Coated Tablet PO SCH (09:26)
[2023-01-10] MEDS: Saccharomyces boulardii 250 MG CAP PO SCH (09:26)
[2023-01-10] MEDS: Spironolactone 25 MG TAB PO SCH (09:26)
[2023-01-10] MEDS: Zinc Sulfate 220 MG CAP PO SCH (09:26)
[2023-01-10] MEDS: Gabapentin 300 MG CAP PO SCH ×3 (09:26→21:21)
[2023-01-10] MEDS: Cefdinir 300 MG CAP PO SCH ×2 (09:26→21:22)
[2023-01-10] MEDS: HumaLOG 300 UNITS/3 ML VIAL SC PRN ×2 (09:37→12:22)
[2023-01-10] MEDS: HYDROcodone/Acetaminophen 7.5/325 mg Tablet PO PRN ×3 (10:35→22:40)
[2023-01-10] MEDS: Lantus 1000 UNITS/10 ML VIAL SC SCH (21:22)
[2023-01-10] MEDS: Atorvastatin Calcium 40 MG TAB PO SCH (21:22)
[2023-01-11] MEDS: Aspirin 81 mg Enteric Coated Tablet PO SCH (08:52)
[2023-01-11] MEDS: Spironolactone 25 MG TAB PO SCH (08:52)
[2023-01-11] MEDS: Ascorbic Acid 500 mg Chewable Tablet PO SCH (08:52)
[2023-01-11] MEDS: tiZANidine HCl 4 MG TAB PO SCH ×2 (08:52→20:42)
[2023-01-11] MEDS: Cefdinir 300 MG CAP PO SCH ×2 (08:52→20:42)
[2023-01-11] MEDS: Torsemide 20 MG TAB PO SCH (08:52)
[2023-01-11] MEDS: Gabapentin 300 MG CAP PO SCH ×3 (08:52→20:43)
[2023-01-11] MEDS: Zinc Sulfate 220 MG CAP PO SCH (08:52)
[2023-01-11] MEDS: Saccharomyces boulardii 250 MG CAP PO SCH (08:52)
[2023-01-11] MEDS: Sertraline 100 MG TAB PO SCH (08:53)
[2023-01-11] MEDS: Carvedilol 6.25 MG TAB PO SCH ×2 (08:53→17:46)
[2023-01-11] MEDS: HumaLOG 300 UNITS/3 ML VIAL SC PRN ×4 (08:56→20:50)
[2023-01-11] MEDS: HYDROcodone/Acetaminophen 7.5/325 mg Tablet PO PRN ×2 (09:05→15:56)
[2023-01-11] MEDS: HYDROcodone/Acetaminophen 10/325 mg Tablet PO PRN (20:44)
[2023-01-11] MEDS: Atorvastatin Calcium 40 MG TAB PO SCH (20:44)
[2023-01-11] MEDS: Lantus 1000 UNITS/10 ML VIAL SC SCH (20:56)
[2023-01-12] MEDS: HYDROcodone/Acetaminophen 10/325 mg Tablet PO PRN ×5 (00:55→21:52)
[2023-01-12] MEDS: Cefdinir 300 MG CAP PO SCH ×2 (08:28→21:52)
[2023-01-12] MEDS: Zinc Sulfate 220 MG CAP PO SCH (08:28)
[2023-01-12] MEDS: Spironolactone 25 MG TAB PO SCH (08:28)
[2023-01-12] MEDS: Saccharomyces boulardii 250 MG CAP PO SCH (08:28)
[2023-01-12] MEDS: Carvedilol 6.25 MG TAB PO SCH ×2 (08:29→17:24)
[2023-01-12] MEDS: Ascorbic Acid 500 mg Chewable Tablet PO SCH (08:29)
[2023-01-12] MEDS: Torsemide 20 MG TAB PO SCH (08:29)
[2023-01-12] MEDS: Aspirin 81 mg Enteric Coated Tablet PO SCH (08:29)
[2023-01-12] MEDS: HumaLOG 300 UNITS/3 ML VIAL SC PRN ×4 (08:34→21:56)
[2023-01-12] MEDS: Gabapentin 300 MG CAP PO SCH ×3 (08:34→21:54)
[2023-01-12] MEDS: tiZANidine HCl 4 MG TAB PO SCH ×2 (11:00→21:52)
[2023-01-12] MEDS: Sertraline 100 MG TAB PO SCH (11:00)
[2023-01-12] MEDS: Atorvastatin Calcium 40 MG TAB PO SCH (21:52)
[2023-01-12] MEDS: Lantus 1000 UNITS/10 ML VIAL SC SCH (21:55)
[2023-01-13] MEDS: Cefdinir 300 MG CAP PO SCH ×2 (08:32→20:52)
[2023-01-13] MEDS: HYDROcodone/Acetaminophen 10/325 mg Tablet PO PRN ×4 (08:32→20:57)
[2023-01-13] MEDS: Ascorbic Acid 500 mg Chewable Tablet PO SCH (08:33)
[2023-01-13] MEDS: Spironolactone 25 MG TAB PO SCH (08:33)
[2023-01-13] MEDS: Gabapentin 300 MG CAP PO SCH ×3 (08:33→20:52)
[2023-01-13] MEDS: Saccharomyces boulardii 250 MG CAP PO SCH (08:33)
[2023-01-13] MEDS: Torsemide 20 MG TAB PO SCH (08:33)
[2023-01-13] MEDS: Carvedilol 6.25 MG TAB PO SCH ×2 (08:33→16:15)
[2023-01-13] MEDS: Aspirin 81 mg Enteric Coated Tablet PO SCH (08:33)
[2023-01-13] MEDS: Zinc Sulfate 220 MG CAP PO SCH (08:33)
[2023-01-13] MEDS: HumaLOG 300 UNITS/3 ML VIAL SC PRN ×2 (08:37→12:23)
[2023-01-13] MEDS: tiZANidine HCl 4 MG TAB PO SCH ×2 (10:41→20:54)
[2023-01-13] MEDS: Sertraline 100 MG TAB PO SCH (10:41)
[2023-01-13] MEDS: Atorvastatin Calcium 40 MG TAB PO SCH (20:54)
[2023-01-13] MEDS: Lantus 1000 UNITS/10 ML VIAL SC SCH (20:58)
[2023-01-14] MEDS: Saccharomyces boulardii 250 MG CAP PO SCH (08:01)
[2023-01-14] MEDS: Zinc Sulfate 220 MG CAP PO SCH (08:01)
[2023-01-14] MEDS: Carvedilol 6.25 MG TAB PO SCH ×2 (08:01→17:19)
[2023-01-14] MEDS: Torsemide 20 MG TAB PO SCH (08:01)
[2023-01-14] MEDS: Spironolactone 25 MG TAB PO SCH (08:01)
[2023-01-14] MEDS: Cefdinir 300 MG CAP PO SCH ×2 (08:01→21:53)
[2023-01-14] MEDS: Aspirin 81 mg Enteric Coated Tablet PO SCH (08:01)
[2023-01-14] MEDS: Gabapentin 300 MG CAP PO SCH ×3 (08:01→21:52)
[2023-01-14] MEDS: Ascorbic Acid 500 mg Chewable Tablet PO SCH (08:02)
[2023-01-14] MEDS: HumaLOG 300 UNITS/3 ML VIAL SC PRN ×3 (08:03→17:19)
[2023-01-14] MEDS: HYDROcodone/Acetaminophen 10/325 mg Tablet PO PRN ×3 (08:09→17:18)
[2023-01-14] MEDS: Sertraline 100 MG TAB PO SCH (10:08)
[2023-01-14] MEDS: tiZANidine HCl 4 MG TAB PO SCH ×2 (10:08→21:53)
[2023-01-14] MEDS ORDERED: Loratadine 10 MG TAB PO PRN (18:27)
[2023-01-14] MEDS: Atorvastatin Calcium 40 MG TAB PO SCH (21:53)
[2023-01-14] MEDS: Acetaminophen/Codeine 30-300mg Tablet PO PRN (21:53)
[2023-01-14] MEDS: Lantus 1000 UNITS/10 ML VIAL SC SCH (21:54)
[2023-01-14] MEDS: Mupirocin 2% Ointment 22 GM Tube TOP SCH (22:03)
[2023-01-15] MEDS: Acetaminophen/Codeine 30-300mg Tablet PO PRN ×3 (04:08→19:28)
[2023-01-15] MEDS: Ascorbic Acid 500 mg Chewable Tablet PO SCH (08:37)
[2023-01-15] MEDS: Carvedilol 6.25 MG TAB PO SCH ×2 (08:37→16:53)
[2023-01-15] MEDS: Aspirin 81 mg Enteric Coated Tablet PO SCH (08:38)
[2023-01-15] MEDS: Sertraline 100 MG TAB PO SCH (08:38)
[2023-01-15] MEDS: Spironolactone 25 MG TAB PO SCH (08:38)
[2023-01-15] MEDS: Torsemide 20 MG TAB PO SCH (08:38)
[2023-01-15] MEDS: Gabapentin 300 MG CAP PO SCH ×3 (08:38→20:00)
[2023-01-15] MEDS: tiZANidine HCl 4 MG TAB PO SCH ×2 (08:38→20:00)
[2023-01-15] MEDS: Saccharomyces boulardii 250 MG CAP PO SCH (08:39)
[2023-01-15] MEDS: Cefdinir 300 MG CAP PO SCH ×2 (08:39→20:01)
[2023-01-15] MEDS: Zinc Sulfate 220 MG CAP PO SCH (08:39)
[2023-01-15] MEDS: HumaLOG 300 UNITS/3 ML VIAL SC PRN ×3 (08:40→16:53)
[2023-01-15] MEDS: Mupirocin 2% Ointment 22 GM Tube TOP SCH ×3 (08:49→20:59)
[2023-01-15] MEDS: Atorvastatin Calcium 40 MG TAB PO SCH (20:01)
[2023-01-15] MEDS: Lantus 1000 UNITS/10 ML VIAL SC SCH (20:59)
[2023-01-16] MEDS: Aspirin 81 mg Enteric Coated Tablet PO SCH (08:16)
[2023-01-16] MEDS: Spironolactone 25 MG TAB PO SCH (08:16)
[2023-01-16] MEDS: Carvedilol 6.25 MG TAB PO SCH ×2 (08:16→17:22)
[2023-01-16] MEDS: Torsemide 20 MG TAB PO SCH (08:16)
[2023-01-16] MEDS: Cefdinir 300 MG CAP PO SCH (08:16)
[2023-01-16] MEDS: Acetaminophen/Codeine 30-300mg Tablet PO PRN ×3 (08:16→20:34)
[2023-01-16] MEDS: tiZANidine HCl 4 MG TAB PO SCH ×2 (08:16→20:08)
[2023-01-16] MEDS: Gabapentin 300 MG CAP PO SCH ×3 (08:18→20:08)
[2023-01-16] MEDS: Zinc Sulfate 220 MG CAP PO SCH (08:19)
[2023-01-16] MEDS: Saccharomyces boulardii 250 MG CAP PO SCH (08:19)
[2023-01-16] MEDS: Sertraline 100 MG TAB PO SCH (08:19)
[2023-01-16] MEDS: Ascorbic Acid 500 mg Chewable Tablet PO SCH (08:19)
[2023-01-16] MEDS: Mupirocin 2% Ointment 22 GM Tube TOP SCH ×3 (08:20→20:10)
[2023-01-16] MEDS: HumaLOG 300 UNITS/3 ML VIAL SC PRN ×3 (08:20→17:22)
[2023-01-16] MEDS ORDERED: Emollient 15 oz bottle 450 ML, Triamcinolone Acetonide 200 MG TOP PRN (11:00)
[2023-01-16] MEDS: Atorvastatin Calcium 40 MG TAB PO SCH (20:08)
[2023-01-16] MEDS: Loratadine 10 MG TAB PO SCH (20:08)
[2023-01-16] MEDS: Lantus 1000 UNITS/10 ML VIAL SC SCH (20:38)
[2023-01-16] MEDS: Emollient 15 oz bottle 450 ML, Triamcinolone Acetonide 200 MG TOP SCH (21:30)
[2023-01-17 05:54] LABS: Anion Gap 15 mmol/L (10-20); BUN (Urea Nitrogen) 26 mg/dL (7.0-18.7); Calc. Creatinine Clearance 118 mL/min (70-130); Carbon Dioxide 23 mmol/L (22-29); Chloride 107 mmol/L (98-107); Estimated GFR 80; Glucose 167 mg/dL (70-105); Potassium 3.1 mmol/L (3.5-5.1); Sodium 142 mmol/L (136-145)
[2023-01-17] MEDS: Acetaminophen/Codeine 30-300mg Tablet PO PRN ×3 (08:25→21:18)
[2023-01-17] MEDS: tiZANidine HCl 4 MG TAB PO SCH ×2 (08:26→21:18)
[2023-01-17] MEDS: Aspirin 81 mg Enteric Coated Tablet PO SCH (08:26)
[2023-01-17] MEDS: Ascorbic Acid 500 mg Chewable Tablet PO SCH (08:26)
[2023-01-17] MEDS: Carvedilol 6.25 MG TAB PO SCH ×2 (08:26→17:55)
[2023-01-17] MEDS: Torsemide 20 MG TAB PO SCH (08:26)
[2023-01-17] MEDS: Gabapentin 300 MG CAP PO SCH ×3 (08:26→21:16)
[2023-01-17] MEDS: Saccharomyces boulardii 250 MG CAP PO SCH (08:27)
[2023-01-17] MEDS: Zinc Sulfate 220 MG CAP PO SCH (08:27)
[2023-01-17] MEDS: Sertraline 100 MG TAB PO SCH (08:27)
[2023-01-17] MEDS: Spironolactone 25 MG TAB PO SCH (08:27)
[2023-01-17] MEDS: Mupirocin 2% Ointment 22 GM Tube TOP SCH ×3 (08:28→21:22)
[2023-01-17] MEDS: Emollient 15 oz bottle 450 ML, Triamcinolone Acetonide 200 MG TOP SCH ×2 (08:28→21:24)
[2023-01-17] MEDS: HumaLOG 300 UNITS/3 ML VIAL SC PRN ×2 (12:35→17:55)
[2023-01-17] MEDS ORDERED: Potassium Chloride 20 MEQ TAB PO SCH (14:00)
[2023-01-17] MEDS: Atorvastatin Calcium 40 MG TAB PO SCH (21:16)
[2023-01-17] MEDS: Lantus 1000 UNITS/10 ML VIAL SC SCH (21:17)
[2023-01-17] MEDS: Loratadine 10 MG TAB PO SCH (21:21)
[2023-01-18 08:59] LABS: Anion Gap 19 mmol/L (10-20); BUN (Urea Nitrogen) 20 mg/dL (7.0-18.7); Calc. Creatinine Clearance 145 mL/min (70-130); Calcium 9.2 mg/dL (7.8-10.44); Carbon Dioxide 18 mmol/L (22-29); Chloride 105 mmol/L (98-107); Estimated GFR 102; Glucose 164 mg/dL (70-105); Potassium 3.6 mmol/L (3.5-5.1); Sodium 138 mmol/L (136-145)
[2023-01-18] MEDS: Acetaminophen/Codeine 30-300mg Tablet PO PRN ×2 (10:05→20:28)
[2023-01-18] MEDS: Ascorbic Acid 500 mg Chewable Tablet PO SCH (10:06)
[2023-01-18] MEDS: Zinc Sulfate 220 MG CAP PO SCH (10:06)
[2023-01-18] MEDS: Gabapentin 300 MG CAP PO SCH ×3 (10:06→20:28)
[2023-01-18] MEDS: Spironolactone 25 MG TAB PO SCH (10:06)
[2023-01-18] MEDS: Sertraline 100 MG TAB PO SCH (10:06)
[2023-01-18] MEDS: tiZANidine HCl 4 MG TAB PO SCH ×2 (10:07→20:28)
[2023-01-18] MEDS: Saccharomyces boulardii 250 MG CAP PO SCH (10:07)
[2023-01-18] MEDS: Torsemide 20 MG TAB PO SCH (10:08)
[2023-01-18] MEDS: Aspirin 81 mg Enteric Coated Tablet PO SCH (10:08)
[2023-01-18] MEDS: Carvedilol 6.25 MG TAB PO SCH ×2 (10:10→17:15)
[2023-01-18] MEDS: Mupirocin 2% Ointment 22 GM Tube TOP SCH ×3 (10:10→20:32)
[2023-01-18] MEDS: Potassium Chloride 20 MEQ TAB PO SCH (10:10)
[2023-01-18] MEDS: Emollient 15 oz bottle 450 ML, Triamcinolone Acetonide 200 MG TOP SCH ×2 (10:10→20:30)
[2023-01-18] MEDS: HumaLOG 300 UNITS/3 ML VIAL SC PRN ×2 (12:38→20:34)
[2023-01-18] MEDS: Atorvastatin Calcium 40 MG TAB PO SCH (20:28)
[2023-01-18] MEDS: Loratadine 10 MG TAB PO SCH (20:30)
[2023-01-18] MEDS: Lantus 1000 UNITS/10 ML VIAL SC SCH (20:33)
[2023-01-19] MEDS: Torsemide 20 MG TAB PO SCH (08:12)
[2023-01-19] MEDS: Aspirin 81 mg Enteric Coated Tablet PO SCH (08:12)
[2023-01-19] MEDS: Ascorbic Acid 500 mg Chewable Tablet PO SCH (08:12)
[2023-01-19] MEDS: Zinc Sulfate 220 MG CAP PO SCH (08:12)
[2023-01-19] MEDS: Sertraline 100 MG TAB PO SCH (08:12)
[2023-01-19] MEDS: Saccharomyces boulardii 250 MG CAP PO SCH (08:12)
[2023-01-19] MEDS: Carvedilol 6.25 MG TAB PO SCH ×2 (08:12→17:36)
[2023-01-19] MEDS: tiZANidine HCl 4 MG TAB PO SCH ×2 (08:12→20:35)
[2023-01-19] MEDS: Gabapentin 300 MG CAP PO SCH ×3 (08:13→20:35)
[2023-01-19] MEDS: Potassium Chloride 20 MEQ TAB PO SCH (08:13)
[2023-01-19] MEDS: HumaLOG 300 UNITS/3 ML VIAL SC PRN ×2 (08:13→12:18)
[2023-01-19] MEDS: Spironolactone 25 MG TAB PO SCH (08:13)
[2023-01-19] MEDS: Emollient 15 oz bottle 450 ML, Triamcinolone Acetonide 200 MG TOP SCH ×2 (08:15→20:39)
[2023-01-19] MEDS: Mupirocin 2% Ointment 22 GM Tube TOP SCH ×3 (08:15→20:38)
[2023-01-19] MEDS: Acetaminophen/Codeine 30-300mg Tablet PO PRN ×2 (12:17→18:05)
[2023-01-19] MEDS: Atorvastatin Calcium 40 MG TAB PO SCH (20:35)
[2023-01-19] MEDS: Loratadine 10 MG TAB PO SCH (20:35)
[2023-01-19] MEDS: Lantus 1000 UNITS/10 ML VIAL SC SCH (20:36)
[2023-01-20] MEDS: Acetaminophen/Codeine 30-300mg Tablet PO PRN ×3 (00:06→19:36)
[2023-01-20] MEDS: Gabapentin 300 MG CAP PO SCH ×3 (09:01→20:05)
[2023-01-20] MEDS: Sertraline 100 MG TAB PO SCH (09:01)
[2023-01-20] MEDS: Aspirin 81 mg Enteric Coated Tablet PO SCH (09:01)
[2023-01-20] MEDS: Spironolactone 25 MG TAB PO SCH (09:01)
[2023-01-20] MEDS: tiZANidine HCl 4 MG TAB PO SCH ×2 (09:02→20:05)
[2023-01-20] MEDS: Potassium Chloride 20 MEQ TAB PO SCH (09:02)
[2023-01-20] MEDS: Zinc Sulfate 220 MG CAP PO SCH (09:02)
[2023-01-20] MEDS: Torsemide 20 MG TAB PO SCH (09:02)
[2023-01-20] MEDS: Ascorbic Acid 500 mg Chewable Tablet PO SCH (09:02)
[2023-01-20] MEDS: Saccharomyces boulardii 250 MG CAP PO SCH (09:02)
[2023-01-20] MEDS: Carvedilol 6.25 MG TAB PO SCH ×2 (09:02→17:10)
[2023-01-20] MEDS: Mupirocin 2% Ointment 22 GM Tube TOP SCH ×3 (09:03→20:08)
[2023-01-20] MEDS: Emollient 15 oz bottle 450 ML, Triamcinolone Acetonide 200 MG TOP SCH ×2 (09:03→20:08)
[2023-01-20] MEDS: HumaLOG 300 UNITS/3 ML VIAL SC PRN (12:17)
[2023-01-20] MEDS: Loratadine 10 MG TAB PO SCH (20:06)
[2023-01-20] MEDS: Atorvastatin Calcium 40 MG TAB PO SCH (20:06)
[2023-01-20] MEDS: Lantus 1000 UNITS/10 ML VIAL SC SCH (20:06)
[2023-01-21] MEDS: HumaLOG 300 UNITS/3 ML VIAL SC PRN ×2 (08:20→12:05)
[2023-01-21] MEDS: Sertraline 100 MG TAB PO SCH (08:21)
[2023-01-21] MEDS: Carvedilol 6.25 MG TAB PO SCH ×2 (08:21→16:39)
[2023-01-21] MEDS: Spironolactone 25 MG TAB PO SCH (08:21)
[2023-01-21] MEDS: Aspirin 81 mg Enteric Coated Tablet PO SCH (08:22)
[2023-01-21] MEDS: Torsemide 20 MG TAB PO SCH (08:22)
[2023-01-21] MEDS: Saccharomyces boulardii 250 MG CAP PO SCH (08:22)
[2023-01-21] MEDS: Potassium Chloride 20 MEQ TAB PO SCH (08:22)
[2023-01-21] MEDS: Gabapentin 300 MG CAP PO SCH ×3 (08:23→22:30)
[2023-01-21] MEDS: Ascorbic Acid 500 mg Chewable Tablet PO SCH (08:23)
[2023-01-21] MEDS: Mupirocin 2% Ointment 22 GM Tube TOP SCH ×3 (08:23→22:32)
[2023-01-21] MEDS: tiZANidine HCl 4 MG TAB PO SCH ×2 (08:24→22:31)
[2023-01-21] MEDS: Emollient 15 oz bottle 450 ML, Triamcinolone Acetonide 200 MG TOP SCH ×2 (08:24→22:32)
[2023-01-21] MEDS: Zinc Sulfate 220 MG CAP PO SCH (08:24)
[2023-01-21] MEDS: Acetaminophen/Codeine 30-300mg Tablet PO PRN ×2 (16:39→22:29)
[2023-01-21] MEDS: Loratadine 10 MG TAB PO SCH (22:30)
[2023-01-21] MEDS: Atorvastatin Calcium 40 MG TAB PO SCH (22:30)
[2023-01-21] MEDS: Lantus 1000 UNITS/10 ML VIAL SC SCH (22:31)
[2023-01-22] MEDS: Torsemide 20 MG TAB PO SCH (08:41)
[2023-01-22] MEDS: Sertraline 100 MG TAB PO SCH (08:42)
[2023-01-22] MEDS: Gabapentin 300 MG CAP PO SCH ×3 (08:42→20:08)
[2023-01-22] MEDS: Spironolactone 25 MG TAB PO SCH (08:42)
[2023-01-22] MEDS: Zinc Sulfate 220 MG CAP PO SCH (08:42)
[2023-01-22] MEDS: Saccharomyces boulardii 250 MG CAP PO SCH (08:42)
[2023-01-22] MEDS: Potassium Chloride 20 MEQ TAB PO SCH (08:43)
[2023-01-22] MEDS: Aspirin 81 mg Enteric Coated Tablet PO SCH (08:43)
[2023-01-22] MEDS: tiZANidine HCl 4 MG TAB PO SCH ×2 (08:43→20:08)
[2023-01-22] MEDS: Ascorbic Acid 500 mg Chewable Tablet PO SCH (08:43)
[2023-01-22] MEDS: Carvedilol 6.25 MG TAB PO SCH ×2 (08:43→17:00)
[2023-01-22] MEDS: Mupirocin 2% Ointment 22 GM Tube TOP SCH ×3 (08:46→20:09)
[2023-01-22] MEDS: Emollient 15 oz bottle 450 ML, Triamcinolone Acetonide 200 MG TOP SCH ×2 (08:46→20:10)
[2023-01-22] MEDS: HumaLOG 300 UNITS/3 ML VIAL SC PRN ×2 (12:09→17:04)
[2023-01-22] MEDS: Atorvastatin Calcium 40 MG TAB PO SCH (20:08)
[2023-01-22] MEDS: Loratadine 10 MG TAB PO SCH (20:08)
[2023-01-22] MEDS: Acetaminophen/Codeine 30-300mg Tablet PO PRN (20:47)
[2023-01-22] MEDS: Lantus 1000 UNITS/10 ML VIAL SC SCH (20:48)
[2023-01-23] MEDS: Carvedilol 6.25 MG TAB PO SCH ×2 (08:19→16:59)
[2023-01-23] MEDS: Potassium Chloride 20 MEQ TAB PO SCH (08:20)
[2023-01-23] MEDS: Ascorbic Acid 500 mg Chewable Tablet PO SCH (08:20)
[2023-01-23] MEDS: Aspirin 81 mg Enteric Coated Tablet PO SCH (08:21)
[2023-01-23] MEDS: Gabapentin 300 MG CAP PO SCH ×3 (08:21→20:46)
[2023-01-23] MEDS: Sertraline 100 MG TAB PO SCH (08:22)
[2023-01-23] MEDS: Mupirocin 2% Ointment 22 GM Tube TOP SCH ×3 (08:22→20:48)
[2023-01-23] MEDS: Saccharomyces boulardii 250 MG CAP PO SCH (08:22)
[2023-01-23] MEDS: Spironolactone 25 MG TAB PO SCH (08:23)
[2023-01-23] MEDS: tiZANidine HCl 4 MG TAB PO SCH ×2 (08:23→20:46)
[2023-01-23] MEDS: Torsemide 20 MG TAB PO SCH (08:23)
[2023-01-23] MEDS: Zinc Sulfate 220 MG CAP PO SCH (08:24)
[2023-01-23] MEDS: Emollient 15 oz bottle 450 ML, Triamcinolone Acetonide 200 MG TOP SCH ×2 (08:24→20:48)
[2023-01-23] MEDS: HumaLOG 300 UNITS/3 ML VIAL SC PRN ×3 (08:25→16:59)
[2023-01-23 10:47] LABS: #Basophils 0.1 thou/uL (0.0-0.2); #Eosinphils 0.3 thou/uL (0.0-0.7); #Lymphocytes 1.3 thou/uL (1.20-3.40); #Monocytes 0.6 thou/uL (0.11-0.59); #Neutrophils 7.7 thou/uL (1.40-6.50); %Basophils 0.7 % (0.0-1.0); %Eosinophils 3.2 % (0.0-10.0); %Lymphocytes 12.9 % (21.0-51.0); %Monocytes 6.4 % (0.0-10.0); %Neutrophils 76.9 % (42.0-75.0); Mean Corpuscular Hemoglobin 26.4 pg (27.0-31.0); Mean Platelet Volume 8.5 fL (7.4-10.4); Platelet Count 428 10x3/uL (130-400); RBC Distribution Width 19.3 % (11.5-14.5); Red Blood Cell (RBC) Count 4.56 mill/uL (4.20-5.40); White Blood Cell (WBC) Count 10.1 10x3/uL (4.8-10.8)
[2023-01-23 11:00] LABS: ALT (SGPT) 13 U/L (8-55); AST (SGOT) 14 U/L (5-34); Albumin 3.3 g/dL (3.5-5.0); Alkaline Phosphatase 94 U/L (40-110); Anion Gap 19 mmol/L (10-20); BUN (Urea Nitrogen) 13 mg/dL (7.0-18.7); Bilirubin, Total 0.4 mg/dL (0.2-1.2); Calc. Creatinine Clearance 143 mL/min (70-130); Calcium 9.3 mg/dL (7.8-10.44); Carbon Dioxide 25 mmol/L (22-29); Chloride 102 mmol/L (98-107); Estimated GFR 96; Globulin 5.1 g/dL (2.4-3.5); Glucose 142 mg/dL (70-105); Potassium 3.5 mmol/L (3.5-5.1); Protein, Total 8.4 g/dL (6.0-8.3); Sodium 142 mmol/L (136-145)
[2023-01-23] MEDS: Acetaminophen/Codeine 30-300mg Tablet PO PRN ×2 (11:00→20:55)
[2023-01-23 11:14] LABS: Anisocytosis SLIGHT = 6-15 cells (100X) (0-5/hpf); Polychromasia SLIGHT = 2-3 cells (100X) (0-2/hpf)
[2023-01-23] MEDS: Lantus 1000 UNITS/10 ML VIAL SC SCH (20:47)
[2023-01-23] MEDS: Loratadine 10 MG TAB PO SCH (20:47)
[2023-01-23] MEDS: Atorvastatin Calcium 40 MG TAB PO SCH (20:47)
[2023-01-24] MEDS: Ascorbic Acid 500 mg Chewable Tablet PO SCH (08:25)
[2023-01-24] MEDS: tiZANidine HCl 4 MG TAB PO SCH ×2 (08:25→21:29)
[2023-01-24] MEDS: Spironolactone 25 MG TAB PO SCH (08:25)
[2023-01-24] MEDS: Saccharomyces boulardii 250 MG CAP PO SCH (08:25)
[2023-01-24] MEDS: Gabapentin 300 MG CAP PO SCH ×3 (08:26→21:29)
[2023-01-24] MEDS: Sertraline 100 MG TAB PO SCH (08:26)
[2023-01-24] MEDS: Torsemide 20 MG TAB PO SCH (08:27)
[2023-01-24] MEDS: Carvedilol 6.25 MG TAB PO SCH ×2 (08:27→17:03)
[2023-01-24] MEDS: Potassium Chloride 20 MEQ TAB PO SCH (08:27)
[2023-01-24] MEDS: Aspirin 81 mg Enteric Coated Tablet PO SCH (08:27)
[2023-01-24] MEDS: Zinc Sulfate 220 MG CAP PO SCH (08:27)
[2023-01-24] MEDS: Mupirocin 2% Ointment 22 GM Tube TOP SCH ×3 (08:28→21:33)
[2023-01-24] MEDS: Emollient 15 oz bottle 450 ML, Triamcinolone Acetonide 200 MG TOP SCH ×2 (08:28→21:33)
[2023-01-24] MEDS: HumaLOG 300 UNITS/3 ML VIAL SC PRN ×2 (12:23→17:05)
[2023-01-24] MEDS ORDERED: Acetaminophen 325 MG TAB PO PRN (13:02)
[2023-01-24] MEDS: Lantus 1000 UNITS/10 ML VIAL SC SCH (21:28)
[2023-01-24] MEDS: Loratadine 10 MG TAB PO SCH (21:29)
[2023-01-24] MEDS: Atorvastatin Calcium 40 MG TAB PO SCH (21:29)
[2023-01-24] MEDS: Acetaminophen/Codeine 30-300mg Tablet PO PRN (21:30)
[2023-01-25] MEDS: Potassium Chloride 20 MEQ TAB PO SCH (08:45)
[2023-01-25] MEDS: Ascorbic Acid 500 mg Chewable Tablet PO SCH (08:45)
[2023-01-25] MEDS: Carvedilol 6.25 MG TAB PO SCH ×2 (08:45→17:11)
[2023-01-25] MEDS: Aspirin 81 mg Enteric Coated Tablet PO SCH (08:46)
[2023-01-25] MEDS: Gabapentin 300 MG CAP PO SCH ×3 (08:46→20:47)
[2023-01-25] MEDS: Saccharomyces boulardii 250 MG CAP PO SCH (08:47)
[2023-01-25] MEDS: Sertraline 100 MG TAB PO SCH (08:47)
[2023-01-25] MEDS: Zinc Sulfate 220 MG CAP PO SCH (08:48)
[2023-01-25] MEDS: tiZANidine HCl 4 MG TAB PO SCH ×2 (08:48→20:47)
[2023-01-25] MEDS: Spironolactone 25 MG TAB PO SCH (08:48)
[2023-01-25] MEDS: Torsemide 20 MG TAB PO SCH (08:48)
[2023-01-25] MEDS: Emollient 15 oz bottle 450 ML, Triamcinolone Acetonide 200 MG TOP SCH ×2 (08:48→20:50)
[2023-01-25 10:16] LABS: ALT (SGPT) 9 U/L (8-55); AST (SGOT) 15 U/L (5-34); Albumin 3.2 g/dL (3.5-5.0); Alkaline Phosphatase 92 U/L (40-110); Anion Gap 14 mmol/L (10-20); BUN (Urea Nitrogen) 12 mg/dL (7.0-18.7); Bilirubin, Total 0.5 mg/dL (0.2-1.2); Calc. Creatinine Clearance 141 mL/min (70-130); Calcium 9.3 mg/dL (7.8-10.44); Carbon Dioxide 25 mmol/L (22-29); Chloride 103 mmol/L (98-107); Estimated GFR 94; Globulin 4.6 g/dL (2.4-3.5); Glucose 193 mg/dL (70-105); Potassium 3.8 mmol/L (3.5-5.1); Protein, Total 7.8 g/dL (6.0-8.3); Sodium 138 mmol/L (136-145)
[2023-01-25 11:23] LABS: Bilirubin Negative (Negative); Blood, Urine Negative (Negative); Clarity Clear (Clear); Glucose, Urine (Dipstick) Negative (Negative); Ketone, Urine Negative (Negative); Leukocyte Negative (Negative); Nitrite Negative (Negative); Protein, Urine (Dipstick) Negative (Neg-Trace); Specific Gravity, Urine 1.015 (1.005-1.030); Urobilinogen 0.2 mg/dL (Less than 2); pH, Urine 6.5 (5.0-9.0)
[2023-01-25] MEDS: HumaLOG 300 UNITS/3 ML VIAL SC PRN (12:09)
[2023-01-25 12:37] LABS: Bacteria/HPF Rare-Few HPF (None Seen); CAUTI Indications for Culture Dysuria,urgency,freq; RBC/HPF 0-3 HPF (0-3); WBC/HPF 0-3 HPF (0-3)
[2023-01-25 12:39] LABS: Urine Culture Reflex No No
[2023-01-25] MEDS: Acetaminophen/Codeine 30-300mg Tablet PO PRN ×2 (13:06→20:48)
[2023-01-25] MEDS: Lantus 1000 UNITS/10 ML VIAL SC SCH (20:45)
[2023-01-25] MEDS: Loratadine 10 MG TAB PO SCH (20:47)
[2023-01-25] MEDS: Atorvastatin Calcium 40 MG TAB PO SCH (20:47)
[2023-01-26] MEDS: Saccharomyces boulardii 250 MG CAP PO SCH (08:31)
[2023-01-26] MEDS: Carvedilol 6.25 MG TAB PO SCH ×2 (08:31→16:59)
[2023-01-26] MEDS: Torsemide 20 MG TAB PO SCH (08:31)
[2023-01-26] MEDS: Gabapentin 300 MG CAP PO SCH ×3 (08:31→21:11)
[2023-01-26] MEDS: Ascorbic Acid 500 mg Chewable Tablet PO SCH (08:31)
[2023-01-26] MEDS: Spironolactone 25 MG TAB PO SCH (08:31)
[2023-01-26] MEDS: Zinc Sulfate 220 MG CAP PO SCH (08:31)
[2023-01-26] MEDS: Aspirin 81 mg Enteric Coated Tablet PO SCH (08:31)
[2023-01-26] MEDS: tiZANidine HCl 4 MG TAB PO SCH ×2 (08:32→21:11)
[2023-01-26] MEDS: Potassium Chloride 20 MEQ TAB PO SCH (08:32)
[2023-01-26] MEDS: Sertraline 100 MG TAB PO SCH (08:32)
[2023-01-26] MEDS: Emollient 15 oz bottle 450 ML, Triamcinolone Acetonide 200 MG TOP SCH ×2 (08:32→21:19)
[2023-01-26] MEDS: Acetaminophen/Codeine 30-300mg Tablet PO PRN ×2 (10:02→21:12)
[2023-01-26] MEDS: HumaLOG 300 UNITS/3 ML VIAL SC PRN (12:05)
[2023-01-26] MEDS ORDERED: Ketorolac Tromethamine 60 MG/2 ML VIAL IM SCH (15:30)
[2023-01-26] MEDS ORDERED: Ketorolac Tromethamine 60 MG/2 ML VIAL ONE (16:25)
[2023-01-26] MEDS: Lantus 1000 UNITS/10 ML VIAL SC SCH (21:10)
[2023-01-26] MEDS: Atorvastatin Calcium 40 MG TAB PO SCH (21:11)
[2023-01-26] MEDS: Loratadine 10 MG TAB PO SCH (21:11)
[2023-01-27] MEDS: Spironolactone 25 MG TAB PO SCH (08:06)
[2023-01-27] MEDS: Torsemide 20 MG TAB PO SCH (08:06)
[2023-01-27] MEDS: Gabapentin 300 MG CAP PO SCH ×3 (08:06→21:09)
[2023-01-27] MEDS: Ascorbic Acid 500 mg Chewable Tablet PO SCH (08:07)
[2023-01-27] MEDS: Emollient 15 oz bottle 450 ML, Triamcinolone Acetonide 200 MG TOP SCH ×2 (08:07→21:10)
[2023-01-27] MEDS: Saccharomyces boulardii 250 MG CAP PO SCH (08:07)
[2023-01-27] MEDS: Carvedilol 6.25 MG TAB PO SCH ×2 (08:07→16:33)
[2023-01-27] MEDS: Zinc Sulfate 220 MG CAP PO SCH (08:07)
[2023-01-27] MEDS: tiZANidine HCl 4 MG TAB PO SCH ×2 (08:07→21:10)
[2023-01-27] MEDS: Sertraline 100 MG TAB PO SCH (08:07)
[2023-01-27] MEDS: Potassium Chloride 20 MEQ TAB PO SCH (08:07)
[2023-01-27] MEDS: Aspirin 81 mg Enteric Coated Tablet PO SCH (08:07)
[2023-01-27] MEDS: HumaLOG 300 UNITS/3 ML VIAL SC PRN ×2 (08:11→12:14)
[2023-01-27] MEDS ORDERED: Ketorolac Tromethamine 10 MG TAB ONE ×2 (12:18→18:27)
[2023-01-27] MEDS: Ketorolac Tromethamine 10 MG TAB PO PRN ×2 (12:20→18:32)
[2023-01-27] MEDS: Acetaminophen/Codeine 30-300mg Tablet PO PRN ×2 (16:33→23:19)
[2023-01-27] MEDS: Loratadine 10 MG TAB PO SCH (21:08)
[2023-01-27] MEDS: Lantus 1000 UNITS/10 ML VIAL SC SCH (21:08)
[2023-01-27] MEDS: Atorvastatin Calcium 40 MG TAB PO SCH (21:08)
[2023-01-28] MEDS ORDERED: Ketorolac Tromethamine 10 MG TAB ONE ×3 (07:13→21:55)
[2023-01-28] MEDS: Torsemide 20 MG TAB PO SCH (07:52)
[2023-01-28] MEDS: Saccharomyces boulardii 250 MG CAP PO SCH (07:52)
[2023-01-28] MEDS: Aspirin 81 mg Enteric Coated Tablet PO SCH (07:52)
[2023-01-28] MEDS: tiZANidine HCl 4 MG TAB PO SCH ×2 (07:53→21:59)
[2023-01-28] MEDS: Carvedilol 6.25 MG TAB PO SCH ×2 (07:53→17:25)
[2023-01-28] MEDS: Ketorolac Tromethamine 10 MG TAB PO PRN ×3 (07:53→22:01)
[2023-01-28] MEDS: Spironolactone 25 MG TAB PO SCH (07:53)
[2023-01-28] MEDS: Potassium Chloride 20 MEQ TAB PO SCH (07:53)
[2023-01-28] MEDS: Gabapentin 300 MG CAP PO SCH ×3 (07:54→22:00)
[2023-01-28] MEDS: Sertraline 100 MG TAB PO SCH (07:54)
[2023-01-28] MEDS: Ascorbic Acid 500 mg Chewable Tablet PO SCH (07:54)
[2023-01-28] MEDS: Zinc Sulfate 220 MG CAP PO SCH (07:54)
[2023-01-28] MEDS: Emollient 15 oz bottle 450 ML, Triamcinolone Acetonide 200 MG TOP SCH ×2 (07:55→22:01)
[2023-01-28] MEDS: Acetaminophen/Codeine 30-300mg Tablet PO PRN ×2 (12:33→22:02)
[2023-01-28] MEDS ORDERED: Ketorolac Tromethamine 60 MG/2 ML VIAL ONE (21:55)
[2023-01-28] MEDS: Atorvastatin Calcium 40 MG TAB PO SCH (21:59)
[2023-01-28] MEDS: Lantus 1000 UNITS/10 ML VIAL SC SCH (22:00)
[2023-01-28] MEDS: Loratadine 10 MG TAB PO SCH (22:01)
[2023-01-29] MEDS: Acetaminophen/Codeine 30-300mg Tablet PO PRN ×2 (07:44→20:08)
[2023-01-29] MEDS: Torsemide 20 MG TAB PO SCH (08:18)
[2023-01-29] MEDS: Gabapentin 300 MG CAP PO SCH ×3 (08:18→20:08)
[2023-01-29] MEDS: Carvedilol 6.25 MG TAB PO SCH ×2 (08:18→17:16)
[2023-01-29] MEDS: Ascorbic Acid 500 mg Chewable Tablet PO SCH (08:18)
[2023-01-29] MEDS: Saccharomyces boulardii 250 MG CAP PO SCH (08:19)
[2023-01-29] MEDS: Sertraline 100 MG TAB PO SCH (08:19)
[2023-01-29] MEDS: Potassium Chloride 20 MEQ TAB PO SCH (08:19)
[2023-01-29] MEDS: tiZANidine HCl 4 MG TAB PO SCH ×2 (08:19→20:07)
[2023-01-29] MEDS: Aspirin 81 mg Enteric Coated Tablet PO SCH (08:19)
[2023-01-29] MEDS: Spironolactone 25 MG TAB PO SCH (08:19)
[2023-01-29] MEDS: HumaLOG 300 UNITS/3 ML VIAL SC PRN ×3 (08:20→17:16)
[2023-01-29] MEDS: Zinc Sulfate 220 MG CAP PO SCH (08:20)
[2023-01-29] MEDS: Emollient 15 oz bottle 450 ML, Triamcinolone Acetonide 200 MG TOP SCH ×2 (10:34→20:12)
[2023-01-29] MEDS: Atorvastatin Calcium 40 MG TAB PO SCH (20:07)
[2023-01-29] MEDS: Loratadine 10 MG TAB PO SCH (20:11)
[2023-01-29] MEDS ORDERED: Ketorolac Tromethamine 10 MG TAB ONE (20:54)
[2023-01-29] MEDS: Lantus 1000 UNITS/10 ML VIAL SC SCH (21:21)
[2023-01-29] MEDS: Ketorolac Tromethamine 10 MG TAB PO PRN (21:22)
[2023-01-30] MEDS: Gabapentin 300 MG CAP PO SCH ×3 (08:48→20:54)
[2023-01-30] MEDS: Carvedilol 6.25 MG TAB PO SCH ×2 (08:48→17:17)
[2023-01-30] MEDS: Torsemide 20 MG TAB PO SCH (08:48)
[2023-01-30] MEDS: Zinc Sulfate 220 MG CAP PO SCH (08:48)
[2023-01-30] MEDS: Aspirin 81 mg Enteric Coated Tablet PO SCH (08:48)
[2023-01-30] MEDS: Spironolactone 25 MG TAB PO SCH (08:48)
[2023-01-30] MEDS: Ascorbic Acid 500 mg Chewable Tablet PO SCH (08:48)
[2023-01-30] MEDS: Saccharomyces boulardii 250 MG CAP PO SCH (08:48)
[2023-01-30] MEDS: tiZANidine HCl 4 MG TAB PO SCH ×2 (08:48→20:54)
[2023-01-30] MEDS: Potassium Chloride 20 MEQ TAB PO SCH (08:48)
[2023-01-30] MEDS: Sertraline 100 MG TAB PO SCH (08:48)
[2023-01-30] MEDS: Emollient 15 oz bottle 450 ML, Triamcinolone Acetonide 200 MG TOP SCH ×2 (08:49→20:57)
[2023-01-30] MEDS: Acetaminophen/Codeine 30-300mg Tablet PO PRN ×3 (08:54→20:54)
[2023-01-30] MEDS: HumaLOG 300 UNITS/3 ML VIAL SC PRN (12:12)
[2023-01-30] MEDS: Atorvastatin Calcium 40 MG TAB PO SCH (20:54)
[2023-01-30] MEDS: Loratadine 10 MG TAB PO SCH (20:54)
[2023-01-30] MEDS: Lantus 1000 UNITS/10 ML VIAL SC SCH (20:54)
[2023-01-31] MEDS: Aspirin 81 mg Enteric Coated Tablet PO SCH (08:23)
[2023-01-31] MEDS: Ascorbic Acid 500 mg Chewable Tablet PO SCH (08:23)
[2023-01-31] MEDS: Gabapentin 300 MG CAP PO SCH ×3 (08:24→20:41)
[2023-01-31] MEDS: Carvedilol 6.25 MG TAB PO SCH ×2 (08:25→16:32)
[2023-01-31] MEDS: Potassium Chloride 20 MEQ TAB PO SCH (08:25)
[2023-01-31] MEDS: Sertraline 100 MG TAB PO SCH (08:26)
[2023-01-31] MEDS: Saccharomyces boulardii 250 MG CAP PO SCH (08:26)
[2023-01-31] MEDS: Zinc Sulfate 220 MG CAP PO SCH (08:27)
[2023-01-31] MEDS: Spironolactone 25 MG TAB PO SCH (08:27)
[2023-01-31] MEDS: tiZANidine HCl 4 MG TAB PO SCH ×2 (08:27→20:43)
[2023-01-31] MEDS: Torsemide 20 MG TAB PO SCH (08:27)
[2023-01-31] MEDS: Emollient 15 oz bottle 450 ML, Triamcinolone Acetonide 200 MG TOP SCH ×2 (08:28→20:46)
[2023-01-31] MEDS: Acetaminophen/Codeine 30-300mg Tablet PO PRN ×2 (08:32→20:43)
[2023-01-31] MEDS: Loratadine 10 MG TAB PO SCH (20:42)
[2023-01-31] MEDS: Atorvastatin Calcium 40 MG TAB PO SCH (20:43)
[2023-01-31] MEDS: Lantus 1000 UNITS/10 ML VIAL SC SCH (20:44)
[2023-02-01] MEDS: Carvedilol 6.25 MG TAB PO SCH ×2 (09:42→16:54)
[2023-02-01] MEDS: Sertraline 100 MG TAB PO SCH (09:42)
[2023-02-01] MEDS: Ascorbic Acid 500 mg Chewable Tablet PO SCH (09:43)
[2023-02-01] MEDS: Zinc Sulfate 220 MG CAP PO SCH (09:43)
[2023-02-01] MEDS: tiZANidine HCl 4 MG TAB PO SCH ×2 (09:43→20:45)
[2023-02-01] MEDS: Potassium Chloride 20 MEQ TAB PO SCH (09:43)
[2023-02-01] MEDS: Gabapentin 300 MG CAP PO SCH ×3 (09:44→20:45)
[2023-02-01] MEDS: Aspirin 81 mg Enteric Coated Tablet PO SCH (09:44)
[2023-02-01] MEDS: Torsemide 20 MG TAB PO SCH (09:45)
[2023-02-01] MEDS: Saccharomyces boulardii 250 MG CAP PO SCH (09:45)
[2023-02-01] MEDS: Emollient 15 oz bottle 450 ML, Triamcinolone Acetonide 200 MG TOP SCH ×2 (09:45→20:50)
[2023-02-01] MEDS: Spironolactone 25 MG TAB PO SCH (09:45)
[2023-02-01] MEDS: Acetaminophen/Codeine 30-300mg Tablet PO PRN ×2 (09:51→20:48)
[2023-02-01] MEDS: HumaLOG 300 UNITS/3 ML VIAL SC PRN (12:02)
[2023-02-01 18:56] VITALS: TEMP 97.9
[2023-02-01] MEDS: Loratadine 10 MG TAB PO SCH (20:48)
[2023-02-01] MEDS: Lantus 1000 UNITS/10 ML VIAL SC SCH (20:49)
[2023-02-01] MEDS: Atorvastatin Calcium 40 MG TAB PO SCH (20:49)
[2023-02-02 07:13] VITALS: BP 140/80
[2023-02-02] MEDS: Gabapentin 300 MG CAP PO SCH (09:35)
[2023-02-02] MEDS: Saccharomyces boulardii 250 MG CAP PO SCH (09:35)
[2023-02-02] MEDS: Ascorbic Acid 500 mg Chewable Tablet PO SCH (09:35)
[2023-02-02] MEDS: tiZANidine HCl 4 MG TAB PO SCH (09:35)
[2023-02-02] MEDS: Torsemide 20 MG TAB PO SCH (09:35)
[2023-02-02] MEDS: Sertraline 100 MG TAB PO SCH (09:36)
[2023-02-02] MEDS: Potassium Chloride 20 MEQ TAB PO SCH (09:36)
[2023-02-02] MEDS: Spironolactone 25 MG TAB PO SCH (09:37)
[2023-02-02] MEDS: Aspirin 81 mg Enteric Coated Tablet PO SCH (09:37)
[2023-02-02] MEDS: Zinc Sulfate 220 MG CAP PO SCH (09:37)
[2023-02-02] MEDS: Emollient 15 oz bottle 450 ML, Triamcinolone Acetonide 200 MG TOP SCH (09:37)
[2023-02-02] MEDS: Carvedilol 6.25 MG TAB PO SCH (09:37)
[2023-02-02] MEDS: Acetaminophen/Codeine 30-300mg Tablet PO PRN (09:53)
[2023-02-02] MEDS: HumaLOG 300 UNITS/3 ML VIAL SC PRN (12:04)
[2023-02-02 12:15] VITALS: BMI 43.5
[2023-02-02] MEDS ORDERED: Lantus 1000 UNITS/10 ML VIAL SC SCH (13:45)
[2023-02-03] MEDS ORDERED: Lantus 1000 UNITS/10 ML VIAL SC SCH (21:00)
== END 2023-02-02 14:45 | disposition home or self-care (01) | DRG 593 ==
LOC: MADMS 21:31
PROVIDERS: ADMIT Family Medicine; ATTEND Family Medicine
DX: L89.154 Pressure ulcer of sacral region, stage 4 (principal); I50.22 Chronic systolic (congestive) heart failure; Z68.41 Body mass index [BMI] 40.0-44.9, adult; E11.9 Type 2 diabetes mellitus without complications; E66.01 Morbid (severe) obesity due to excess calories; E87.6 Hypokalemia; I25.5 Ischemic cardiomyopathy; E78.5 Hyperlipidemia, unspecified; F41.9 Anxiety disorder, unspecified; R53.81 Other malaise; I11.0 Hypertensive heart disease with heart failure; F32.A Depression, unspecified; Z98.890 Other specified postprocedural states; Z88.1 Allergy status to other antibiotic agents; Z95.810 Presence of automatic (implantable) cardiac defibrillator; Z88.0 Allergy status to penicillin; Z79.82 Long term (current) use of aspirin; Z79.899 Other long term (current) drug therapy; Z79.51 Long term (current) use of inhaled steroids; Z79.4 Long term (current) use of insulin; Z95.1 Presence of aortocoronary bypass graft; Z87.891 Personal history of nicotine dependence; Z90.721 Acquired absence of ovaries, unilateral
CPT/HCPCS: 36416; 80048; 80053; 81001; 85025; 87081; 36415-59; J1815; J1885; J2270; J3301

== ENCOUNTER 2023-04-03 16:44 | Emergency (ER) | payer MEDICARE, MEDICAID ==
[2023-04-03] MEDS ORDERED: HYDROcodone/Acetaminophen 10/325 mg Tablet ONE (18:04)
== END 2023-04-03 19:03 | disposition home or self-care (01) ==
LOC: MADERS 16:44
DX: M79.672 Pain in left foot (principal); M79.671 Pain in right foot; Z87.891 Personal history of nicotine dependence

== ENCOUNTER 2024-10-01 12:18 | Emergency (ER) | payer MEDICARE ==
[~2024-10-01 12:18] MED LIST changes: +Iopamidol 370 76% 100 ML VIAL ONE; -Iopamidol 370 76% 125 ML VIAL FS ONE
[2024-10-01] MEDS ORDERED: Ondansetron PF 4 MG/2 ML Vial ONE (12:59)
[2024-10-01] MEDS ORDERED: HYDROmorphone 0.5 MG/0.5 ML SYRINGE ONE (13:00)
[2024-10-01 13:12] LABS: Hematocrit 39.2 % (36.0-47.0); Red Blood Cell (RBC) Count 4.31 mill/uL (4.20-5.40); White Blood Cell (WBC) Count 12.8 10x3/uL (4.8-10.8)
[2024-10-01 13:13] LABS: Anisocytosis SLIGHT = 6-15 cells (100X) (0-5/hpf); Band 3 % (5-11); Eosinophils 5 % (0-10); Lymphocytes 17 % (21-51); MDiff Complete? YES; Manual Diff?? YES; Mean Corpuscular HGB CONC 30.7 g/dL (32.0-36.0); Mean Corpuscular Hemoglobin 27.8 pg (27.0-31.0); Mean Corpuscular Volume 90.9 fl (78.0-98.0); Mean Platelet Volume 8.3 fL (7.4-10.4); Monocytes 8 % (0-10); Neutrophil 67 % (42-75); Platelet Count 332 10x3/uL (130-400); RBC Distribution Width 15.4 % (11.5-14.5)
[2024-10-01 13:14] LABS: Platelet Adequacy Comment Appears Adequate
[2024-10-01 13:15] LABS: ALT (SGPT) 14 U/L (8-55); AST (SGOT) 13 U/L (5-34); Alkaline Phosphatase 89 U/L (40-110); Anion Gap 11 mmol/L (10-20); BUN (Urea Nitrogen) 9 mg/dL (7.0-18.7); Bilirubin, Total 0.6 mg/dL (0.2-1.2); Calc. Creatinine Clearance 0 mL/min (70-130); Calcium 8.5 mg/dL (7.8-10.44); Carbon Dioxide 20 mmol/L (22-29); Chloride 109 mmol/L (98-107); Estimated GFR 102; Globulin 4.2 g/dL (2.4-3.5); Glucose 159 mg/dL (70-105); Lipase 6 U/L (8-78); Potassium 3.9 mmol/L (3.5-5.1); Protein, Total 7.2 g/dL (6.0-8.3); Sodium 136 mmol/L (136-145)
[2024-10-01 13:39] LABS: Bilirubin Negative (Negative); Blood, Urine Moderate (Negative); Glucose, Urine (Dipstick) Negative (Negative); Ketone, Urine Negative (Negative); Leukocyte Trace (Negative); Nitrite Negative (Negative); Protein, Urine (Dipstick) 100 mg/dL (Neg-Trace); Urobilinogen 0.2 mg/dL (Less than 2); pH, Urine 5.5 (5.0-9.0)
[2024-10-01 13:40] LABS: Clarity Cloudy (Clear); Specific Gravity, Urine 1.021 (1.002-1.036)
[2024-10-01 13:43] LABS: Bacteria/HPF 1+ HPF (None Seen); CAUTI Indications for Culture Pelvic or flank pain; Mucous/LPF 2+ LPF (<2+); RBC/HPF 0-3 HPF (0-3); Urine Culture Reflex No No
[2024-10-01 13:48] LABS: Pregnancy Test - Urine (BHCG) Negative (Negative); Pregu Control Background? CLEAR/WHITE (CLR/WHITE); Pregu Control Bar Appear? YES (CONTROL BAR); Specific Gravity 1.021 (1.002-1.036)
[2024-10-01] MEDS ORDERED: HYDROcodone/Acetaminophen 5/325 mg Tablet ONE (16:59)
== END 2024-10-01 17:20 | disposition home or self-care (01) ==
LOC: MADERS 12:18
DX: R10.11 Right upper quadrant pain (principal); R10.31 Right lower quadrant pain; C53.9 Malignant neoplasm of cervix uteri, unspecified; I11.0 Hypertensive heart disease with heart failure; I50.9 Heart failure, unspecified; E11.9 Type 2 diabetes mellitus without complications; E78.5 Hyperlipidemia, unspecified
CPT/HCPCS: 74177; 80053; 81001; 81025; 83605; 83690; 85025; 93005; 96374; 96375; 99284; J1171; J2405; Q9967; 36415

== ENCOUNTER 2025-06-23 15:29 | Emergency (ER) | payer MEDICARE ==
[2025-06-23] MEDS ORDERED: Ondansetron PF 4 MG/2 ML Vial ONE ×2 (16:10→20:53)
[2025-06-23 16:36] LABS: #Basophils 0.4 thou/uL (0.0-0.2); #Eosinophils 0.1 thou/uL (0.0-0.7); #Lymphocytes 0.9 thou/uL (1.20-3.40); #Monocytes 1.5 thou/uL (0.11-0.59); #Neutrophils 16.0 thou/uL (1.40-6.50); %Basophils 2.4 % (0.0-1.0); %Eosinophils 0.4 % (0.0-10.0); %Lymphocytes 4.7 % (21.0-51.0); %Monocytes 7.7 % (0.0-10.0); %Neutrophils 84.8 % (42.0-75.0); Hematocrit 34.1 % (36.0-47.0); Hemoglobin 10.3 g/dL (12.0-16.0); Mean Corpuscular Hemoglobin 22.4 pg (27.0-31.0); Mean Corpuscular Volume 74.5 fl (78.0-98.0); Platelet Count 459 10x3/uL (130-400); Red Blood Cell (RBC) Count 4.57 mill/uL (4.20-5.40); White Blood Cell (WBC) Count 18.9 10x3/uL (4.8-10.8)
[2025-06-23 16:38] LABS: BHCG - Serum Negative (NEGATIVE); Pregs Control Background? CLEAR/WHITE (CLR/WHITE); Pregs Control Bar Appear? YES (CONTROL BAR)
[2025-06-23 16:47] LABS: Anisocytosis SLIGHT = 6-15 cells (100X) (0-5/hpf); Microcytosis SLIGHT = 6-15 cells (100X) (0-5/hpf); Poikilocytosis SLIGHT = 6-15 cells (100X) (0-5/hpf)
[2025-06-23 16:48] LABS: ALT (SGPT) Less than 4 U/L (Less than 34); AST (SGOT) 13 U/L (11-34); Albumin 3.3 g/dL (3.1-4.5); Alkaline Phosphatase 80 U/L (40-110); Anion Gap 17 mmol/L (10-20); BUN (Urea Nitrogen) 14 mg/dL (7.0-18.7); Bilirubin, Total 1.4 mg/dL (0.3-1.2); Calc. Creatinine Clearance 0 mL/min (70-130); Calcium 9.2 mg/dL (7.8-10.44); Carbon Dioxide 19 mmol/L (22-29); Chloride 106 mmol/L (98-107); Globulin 4.5 g/dL (2.4-3.5); Glucose 164 mg/dL (70-105); Lipase 10 U/L (8-78); Polychromasia SLIGHT = 2-3 cells (100X) (0-2/hpf); Potassium 3.8 mmol/L (3.5-5.1); Sodium 138 mmol/L (136-145)
[2025-06-23] MEDS ORDERED: metroNIDAZOLE 500 MG (100 mL) BAG ONE (17:02)
== END 2025-06-23 21:00 | disposition short-term general hospital (02) ==
LOC: MADERS 15:29
DX: N73.9 Female pelvic inflammatory disease, unspecified (principal); I11.0 Hypertensive heart disease with heart failure; I50.9 Heart failure, unspecified; E11.65 Type 2 diabetes mellitus with hyperglycemia; E78.5 Hyperlipidemia, unspecified; Z87.891 Personal history of nicotine dependence; Z79.899 Other long term (current) drug therapy; Z79.84 Long term (current) use of oral hypoglycemic drugs; Z79.02 Long term (current) use of antithrombotics/antiplatelets
CPT/HCPCS: 74177; 80053; 83605; 83690; 84703; 85025; 87040; 87426; J3373; J7030 ×2; Q9967; 36415; 96361; 96365; 96366; 96368; 96375; 96376

== ENCOUNTER 2025-09-03 11:34 | Emergency (ER) | payer MEDICARE ==
[2025-09-03] MEDS ORDERED: Furosemide 20 MG (2 mL) VIAL ONE (12:07)
[2025-09-03] MEDS ORDERED: Ondansetron PF 4 MG/2 ML Vial ONE (12:08)
[2025-09-03 12:36] LABS: #Basophils 0.1 thou/uL (0.0-0.2); #Eosinophils 0.1 thou/uL (0.0-0.7); #Lymphocytes 1.7 thou/uL (1.20-3.40); #Monocytes 0.7 thou/uL (0.11-0.59); #Neutrophils 10.3 thou/uL (1.40-6.50); %Basophils 1.1 % (0.0-1.0); %Eosinophils 1.1 % (0.0-10.0); %Lymphocytes 12.9 % (21.0-51.0); %Monocytes 5.5 % (0.0-10.0); %Neutrophils 79.4 % (42.0-75.0); Hematocrit 32.8 % (36.0-47.0); Hemoglobin 9.2 g/dL (12.0-16.0); Mean Corpuscular Hemoglobin 21.0 pg (27.0-31.0); Mean Corpuscular Volume 75.2 fl (78.0-98.0); Platelet Count 422 10x3/uL (130-400); Red Blood Cell (RBC) Count 4.37 mill/uL (4.20-5.40); White Blood Cell (WBC) Count 13.0 10x3/uL (4.8-10.8)
[2025-09-03 12:52] LABS: Anisocytosis SLIGHT = 6-15 cells (100X) (0-5/hpf); Platelet Adequacy Comment Appears Increased
[2025-09-03 12:53] LABS: ALT (SGPT) Less than 7 U/L (Less than 34); AST (SGOT) 13 U/L (11-34); Albumin 3.1 g/dL (3.1-4.5); Anion Gap 16 mmol/L (10-20); BUN (Urea Nitrogen) 19 mg/dL (7.0-18.7); Bilirubin, Total 0.6 mg/dL (0.3-1.2); Calc. Creatinine Clearance 0 mL/min (70-130); Calcium 8.5 mg/dL (7.8-10.44); Carbon Dioxide 18 mmol/L (22-29); Chloride 108 mmol/L (98-107); Globulin 3.7 g/dL (2.4-3.5); Glucose 161 mg/dL (70-105); INR-International Normal Ratio 1.4; Lipase 23 U/L (8-78); Potassium 3.8 mmol/L (3.5-5.1); Prothrombin Time 17.6 sec (12.0-14.7); Sodium 138 mmol/L (136-145)
[2025-09-03 12:54] LABS: PTT 37.4 sec (22.9-36.1)
[2025-09-03 12:55] LABS: Bicarbonate (HCO3v) 21.6 mmol/L (22.0-28.0); CO2 Tension (PvCO2) 37.0 mmHg (42.0-51.0); Calcium, Ionized 1.17 mmol/L (1.15-1.33); Chloride 110 mmol/L (98-107); Hemoglobin - Calc 11.5 g/dL (12.0-16.0); Potassium 3.8 mmol/L (3.5-5.1); Sodium 140 mmol/L (138-145); T. Carbon Dioxide 22.7 mmol/L (22.0-28.0); Troponin I 0.026 ng/mL (< 0.028); vO2 Saturation-calc 99.2 % (60.0-85.0)
[2025-09-03 13:14] LABS: Alkaline Phosphatase 76 U/L (40-110)
[2025-09-03 13:43] LABS: Glucose, Urine (Dipstick) Negative (Negative); Leukocyte Negative (Negative); Protein, Urine (Dipstick) Negative (Neg-Trace); Specific Gravity, Urine 1.010 (1.005-1.030)
[2025-09-03 14:02] LABS: Bacteria/HPF Rare-Few HPF (None Seen); CAUTI Indications for Culture Alt mental st,lethar; Mucous/LPF Few LPF (<2+); RBC/HPF Greater than 50 HPF (0-3); Urine Culture Reflex No No
[2025-09-03 15:57] LABS: Troponin I 0.034 ng/mL (< 0.028)
== END 2025-09-03 17:07 | disposition short-term general hospital (02) ==
LOC: MADERS 11:34
DX: I20.0 Unstable angina (principal); I50.9 Heart failure, unspecified; C53.9 Malignant neoplasm of cervix uteri, unspecified; R18.8 Other ascites; R45.851 Suicidal ideations; I73.9 Peripheral vascular disease, unspecified; E11.9 Type 2 diabetes mellitus without complications; I10 Essential (primary) hypertension; Z95.5 Presence of coronary angioplasty implant and graft; Z87.891 Personal history of nicotine dependence; Z79.899 Other long term (current) drug therapy; Z79.02 Long term (current) use of antithrombotics/antiplatelets; Z79.4 Long term (current) use of insulin
CPT/HCPCS: 71275; 74177; 80053; 81001; 82330; 82435; 82803; 83690; 83880; 84132; 84295; 84484 ×2; 85014; 85025; 85610; 85730; 93005; 94760; 96374; 96375; 96376; 99285; J1940; J2270; J2405; J3010; Q9967; 36415

== ENCOUNTER 2025-09-12 20:28 | Emergency (ER) | payer MEDICARE ==
[2025-09-12 21:09] LABS: #Basophils 0.2 thou/uL (0.0-0.2); #Eosinophils 0.3 thou/uL (0.0-0.7); #Lymphocytes 1.9 thou/uL (1.20-3.40); #Monocytes 0.6 thou/uL (0.11-0.59); #Neutrophils 8.3 thou/uL (1.40-6.50); %Basophils 1.7 % (0.0-1.0); %Eosinophils 2.6 % (0.0-10.0); %Lymphocytes 17.0 % (21.0-51.0); %Monocytes 5.0 % (0.0-10.0); %Neutrophils 73.7 % (42.0-75.0); Hematocrit 34.7 % (36.0-47.0); Hemoglobin 9.9 g/dL (12.0-16.0); Mean Corpuscular Hemoglobin 21.2 pg (27.0-31.0); Mean Corpuscular Volume 74.0 fl (78.0-98.0); Platelet Count 507 10x3/uL (130-400); Red Blood Cell (RBC) Count 4.69 mill/uL (4.20-5.40); White Blood Cell (WBC) Count 11.3 10x3/uL (4.8-10.8)
[2025-09-12 21:25] LABS: ALT (SGPT) 8 U/L (Less than 34); AST (SGOT) 17 U/L (11-34); Albumin 3.2 g/dL (3.1-4.5); Alkaline Phosphatase 79 U/L (40-110); Anion Gap 16 mmol/L (10-20); BUN (Urea Nitrogen) 16 mg/dL (7.0-18.7); Bilirubin, Total 0.6 mg/dL (0.3-1.2); Calc. Creatinine Clearance 0 mL/min (70-130); Calcium 8.6 mg/dL (7.8-10.44); Carbon Dioxide 18 mmol/L (22-29); Chloride 111 mmol/L (98-107); Globulin 3.9 g/dL (2.4-3.5); Glucose 182 mg/dL (70-105); Potassium 4.3 mmol/L (3.5-5.1); Sodium 141 mmol/L (136-145); Troponin I 0.042 ng/mL (< 0.028)
[2025-09-12] MEDS ORDERED: Furosemide 40 MG (4 mL) VIAL ONE (22:42)
[2025-09-12] MEDS ORDERED: HYDROmorphone 0.5 MG/0.5 ML SYRINGE ONE (23:24)
[2025-09-12] MEDS ORDERED: Ondansetron PF 4 MG/2 ML Vial ONE (23:24)
[2025-09-12 23:30] LABS: Glucose, Urine (Dipstick) Negative (Negative); Leukocyte Negative (Negative); Protein, Urine (Dipstick) 30 mg/dL (Neg-Trace); Specific Gravity, Urine 1.020 (1.005-1.030)
[2025-09-12 23:31] LABS: Bacteria/HPF Rare-Few HPF (None Seen); CAUTI Indications for Culture Pelvic or flank pain; RBC/HPF Greater than 50 HPF (0-3); WBC/HPF 0-3 HPF (0-3)
[2025-09-12 23:32] LABS: Urine Culture Reflex No No
[2025-09-13] MEDS ORDERED: HYDROmorphone 0.5 MG/0.5 ML SYRINGE ONE ×2 (03:24→08:35)
[2025-09-13] MEDS ORDERED: Ondansetron PF 4 MG/2 ML Vial ONE ×2 (03:24)
[2025-09-13 07:26] LABS: Troponin I 0.041 ng/mL (< 0.028)
[2025-09-13] MEDS ORDERED: Aspirin Chewable 81 MG TAB ONE (08:34)
[2025-09-13] MEDS ORDERED: Furosemide 40 MG (4 mL) VIAL ONE (10:30)
[2025-09-13 10:50] LABS: Troponin I Less than 0.010 ng/mL (< 0.028)
== END 2025-09-13 13:05 | disposition short-term general hospital (02) ==
LOC: MADERS 20:28
DX: I11.0 Hypertensive heart disease with heart failure (principal); I50.9 Heart failure, unspecified; E11.9 Type 2 diabetes mellitus without complications; E78.5 Hyperlipidemia, unspecified; I25.10 Atherosclerotic heart disease of native coronary artery without angina pectoris; I25.2 Old myocardial infarction; Z79.4 Long term (current) use of insulin; Z79.82 Long term (current) use of aspirin; Z79.01 Long term (current) use of anticoagulants; Z87.891 Personal history of nicotine dependence; Z79.899 Other long term (current) drug therapy
CPT/HCPCS: 36415; 36416; 71275; 74177; 80053; 81001; 83690; 83880; 84484; 85025; 93005; 96374; 96375; 96376; J1171; J1940; J2405; J2550; Q9967